=== PATIENT | male | born 1950 | race Caucasian/White ===

== ENCOUNTER → 2019-04-05 | Outpatient (CLI) | payer OTHER ==
[~2019-04-05] VITALS: Ht 175.3 cm; Wt 107.5 kg
[~2019-04-05] MED LIST: ACTOS15 MG PO; CRESTOR10 MG PO; METFORMIN HCL500 MG PO
[2019-04-05 08:59] VITALS: BP 168/89
== END ==
LOC: SPEC 07:00
DX: I71.4 Abdominal aortic aneurysm, without rupture (principal); I70.1 Atherosclerosis of renal artery; I10 Essential (primary) hypertension; E11.9 Type 2 diabetes mellitus without complications; E78.5 Hyperlipidemia, unspecified; E78.00 Pure hypercholesterolemia, unspecified; Z87.891 Personal history of nicotine dependence; Z79.899 Other long term (current) drug therapy; Z88.0 Allergy status to penicillin; Z98.890 Other specified postprocedural states

== ENCOUNTER 2019-04-19 07:45 | Inpatient (IN) | payer OTHER ==
[2019-04-16 13:08] LABS: URINE BILIRUBIN NEGATIVE (Negative); URINE BLOOD NEGATIVE (Negative); URINE CLARITY CLEAR; URINE COLOR YELLOW; URINE GLUCOSE-RANDOM* NEGATIVE (Negative); URINE KETONES NEGATIVE (Negative); URINE LEUKOCYTES NEGATIVE (Negative); URINE NITRITE NEGATIVE (Negative); URINE PROTEIN (DIPSTICK) NEGATIVE (Negative); URINE UROBILINOGEN 0.2 E.U./dl (0.2-1.0)
[2019-04-16 13:09] LABS: ABSOLUTE NEUTROPHILS 3.5 thou/uL (1.4-8.2); BASOPHILS 0.6 % (0.0-2.0); EOSINOPHILS 1.2 % (0.0-3.0); HEMATOCRIT 38.6 % (42.0-52.0); HEMOGLOBIN 13.4 gm/dL (14.0-18.0); LYMPHOCYTES 27.8 % (24.0-44.0); MCH 32.8 pg (26.0-34.0); MCHC 34.7 g/dL (28.0-37.0); MCV 94.5 fL (80.0-100.0); MONOCYTES 8.2 % (1.0-8.0); PLATELET COUNT 176 thou/uL (150-400); POLYS 62.2 % (36.0-66.0); RBC 4.09 mil/uL (4.50-6.00); RDW 14.3 % (10.5-14.5); WBC 5.7 thou/uL (4.0-11.0)
[2019-04-16 13:23] LABS: APTT 25.9 Seconds (24.5-32.8); PROTIME 10.5 Seconds (9.3-11.4)
[2019-04-16 13:27] LABS: ALBUMIN 4.3 g/dL (3.4-5.0); CALCIUM 9.7 mg/dL (8.5-10.1); CREATININE 1.1 mg/dL (0.7-1.3); POTASSIUM 4.2 mmol/L (3.5-5.1); TOTAL BILIRUBIN 1.4 mg/dL (<0.1-1.0); TOTAL PROTEIN 6.8 g/dL (6.4-8.2)
--- NOTE | 2019-04-16 16:03 | EKG ---
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 CASTANEDA : 1950 Requested By: Bk Martínez Order Number: [id number] MD: Ruiz Brewer Measurements Intervals [place] Rate: 100 P: 21 [place]: 183 QRS: -36 QRSD: 97 T: 48 QT: 359 QTc: 463 Interpretive Statements Sinus tachycardia Probable left atrial enlargement Left axis deviation No previous ECG available for comparison Electronically Signed On 04-16-2019 16:03:29 CDT by Ruiz Brewer [email or web address] ��������������������������������������������� <ELECTRONICALLY SIGNED> ���������������������������������������� By: Ruiz Brewer MD ��������������������������������������������� 04/16/19 1603 1250 1250 Ruiz Brewer MD /KENYON
[~2019-04-19] VITALS: Ht 175.3 cm; Wt 107.4 kg
--- NOTE | ~2019-04-19 | H ---
[facility] [place] [address] HISTORY AND PHYSICAL Name: LIVIA HICKEY Room #: 247-P [facility] IN M.R.#: [id number] Admission: 04/19/19 ������������������ Attend Phys: Bk Martínez MD Discharge: ������������������ Date of : 54 Report #: [id number] THIS REPORT FOR: //name// CC: Bk Navarrete DATE OF SERVICE: 04/20/2019 ADMISSION HISTORY AND PHYSICAL EXAMINATION CHIEF COMPLAINT: "I had chest pain right after the aortic aneurysm repair." HISTORY OF PRESENT ILLNESS: The patient is a very pleasant 69-year-old gentleman with a known history of recently diagnosed diabetes mellitus type 2 three months ago and has been on metformin and Actos, and informs me that his diabetes has been reasonably well controlled; however, he has a very strong family history of aortic aneurysm in his father as well as 2 brothers, and all of them have gotten the surgery done, so he made an appointment with the Cardiology to get the aortic aneurysm checked and today was scheduled for aortic aneurysm stenting and graft by Dr. Martínez. The patient tolerated the procedure fine. However, postoperatively in the recovery room, the patient started having left anterior chest pain, which was initially 4/10 and then it moved over to the midsternal area with 2/10 with some diaphoresis, but the patient denies any associated palpitations or dizziness or referred pain to the jaw, shoulder or arm. The patient did get nitroglycerin x 2 and it did help relieve the pain and the electrocardiogram stat was done along with the troponin, which indicated a first troponin at 0.19. However, the second troponin went to 29.67. At that time, the patient had cardiology evaluation and was taken to cardiac catheterization lab where the initial plan was to do a stent as needed. Instead, the patient was diagnosed with 3-vessel coronary artery disease and is going to see cardiothoracic surgeon again for CABG. The patient informs me that at home he has absolutely had no angina symptoms or any dyspnea or palpitations with exertion. He had been feeling fine and has had completely negative review of systems for dyspepsia, nausea, vomiting or epigastric discomfort or any other symptoms. The patient denies any recent fevers, shaking chills, night sweats or dysuria, hematuria, frequency or urgency of urination. Discussed with the patient about urinalysis done. Preoperative workup on 04/16/2019. The patient absolutely had no symptoms and the urinalysis was completely negative; however, the culture was sent by the preop team and it grew Strep viridans and apparently was treated with cephalosporin by the physician. The patient informs me he does not have any symptoms at all for frequency, urgency or nocturia or any dysuria. PAST MEDICAL HISTORY: Significant for: 1. Aortic aneurysm, diagnosed in 09/2018 and graft placed today. 2. Diabetes mellitus type 2, non-insulin dependent, diagnosed 3 months ago. 3. Hyperlipidemia. [address] [address] HISTORY AND PHYSICAL Name: LIVIA HICKEY Room #: 247-P [facility] IN M.R.#: [id number] Admission: 04/19/19 ������������������ Attend Phys: Bk Martínez MD Discharge: ������������������ Date of : 54 Report #: [id number] 4. Obesity with BMI 34.6. ALLERGIES: The patient has allergy to PENICILLIN; however, he informs me that it was diagnosed at the age of 7 years and he does not even recall the reaction. The patient has tolerated cephalosporins fine. CURRENT MEDICATIONS: As indicated above are: 1. Metformin. 2. Actos. 3. Crestor. PERSONAL AND SOCIAL HISTORY: Significant for tobacco use; however, he quit 35 years ago and had 1 pack per day from his teenage up until in his early 30s. The patient denies any alcohol intake or any recreational drug use. He lives at home with his and she is the emergency contact as well as durable power of corporate attorney for health in case he cannot speak for himself. Mrs. Phyllis Hcikey can be reached at [phone]. FAMILY HISTORY: Significant for father and 2 brothers with aortic aneurysm as indicated above. Also, father had some sort of spinal cancer that he is not sure about and that was the cause of his , and mother had some cancer as well, which he does not recall the diagnosis. The patient informs me that he has absolutely no history of coronary artery disease or CVA in the family or peripheral arterial disease. REVIEW OF SYSTEMS: Ten-point review of system was done. Please see above. PAST SURGICAL HISTORY: Completely negative except aortic stent and grafting done today. PHYSICAL EXAMINATION: VITAL SIGNS: When the patient presented to the hospital, temperature was 36.8, heart rate 95, respirations 16, blood pressure 143/60, pulse oximetry 96% on room air. However, at the time of the examination this morning, the patient is afebrile, heart rate 80, respirations 17, blood pressure 118/62 and pulse oximetry 98% on 4 liters of oxygen by nasal cannula. GENERAL: Alert and oriented to time, place and person, very pleasant 69-year-old gentleman who appears his stated age and is in no acute distress, lying down supine after the procedure. HEENT: Normocephalic, atraumatic. Pupils equally round, reactive to light. Extraocular muscle movements are intact. Conjunctivae are clear and his sclerae are nonicteric. Oropharynx is clear. Uvula midline. Mucous membranes moist. Angle of mouth symmetrical. Tympanic membrane not examined. NECK: Supple, no JVD, no lymphadenopathy. HEART: S1, S2 regular. The patient has 3/6 systolic ejection murmur, which has been present since he was 7 years of age; however, the patient does not remember [facility] [address] [place] [address] HISTORY AND PHYSICAL Name: LIVIA HICKEY Room #: 247-P ADM IN .R.#: [id number] Admission: 04/19/19 ������������������ Attend Phys: Bk Martínez MD Discharge: ������������������ Date of : 54 Report #: [id number] the valvular deformity that he has. No S3 or S4 noted. LUNGS: Clear to auscultation bilaterally without any crackles or wheezes and bilaterally symmetrical chest expansion present. ABDOMEN: Soft, nontender, nondistended. No hepatosplenomegaly noted. EXTREMITIES: Right groin with incision with the dressing intact and the pressure dressing noted, and both dorsalis pedis and posterior tibial are intact. NEUROLOGICAL: Examination is completely nonfocal. LABORATORY DATA: Labs and x-rays, the patient had point of contact glucose 158 this morning, however. Next, Hematology indicates WBC 8.9, hemoglobin 11.3, hematocrit 32.4 and platelet count 142. When reviewed his trend for platelet count, the patient has had 176 on 04/16/2019. Preop workup has a normal platelet count. Differential is within normal limits. Chemistries indicate sodium 137, potassium 3.9, chloride 104, bicarbonate 24, anion gap 9, BUN 20, creatinine 1.2. Calculated GFR is 60, calcium 7.9, albumin 3.1, total bilirubin 1.1, AST 99, ALT 30, alkaline phosphatase 41. Troponin as indicated above is 29.67 and BNP is normal at 302, total protein 5.6. The patient had a chest x-ray done, which indicates no cardiomegaly and pulmonary vasculature is within normal limits; however, there is some increased interstitial prominence as compared to the chest x-ray on 04/16/2019, which was completely unremarkable. Abdominal angiography was done and that indicates a technically satisfactory abdominal aortic aneurysm repair using Excluder stent graft. ASSESSMENT AND PLAN: 1. Non-ST elevation myocardial infarction and three-vessel coronary artery disease. The patient is seeing Dr. Martínez and will have her plan for coronary artery bypass grafting done. We will continue aspirin, statin and beta blockers as indicated by Dr. Singh. Dr. Singh is already on board and we will monitor the patient closely in ICU overnight. 2. Diabetes mellitus type 2. The patient has been on metformin and Actos at this time. We will hold metformin and Actos as he has gotten angiogram, and we will go ahead and get sliding scale insulin and if needed, Lantus. 3. Hyperlipidemia. Continue Crestor. 4. Aortic aneurysm, status post graft. Continue postoperative care as per vascular team. 5. Plan of care was discussed with the patient. The patient is full code. ��������������������������������������������� ���������������������������������������� By: ��������������������������������������������� 1354 1505 Cinthia Owens MD /nt
[2019-04-19 10:14] VITALS: BP 162/95
[2019-04-19 18:15] VITALS: BP 143/60
--- NOTE | 2019-04-19 19:43 | NUR ---
PT ARRIVED TO UNIT APPROXIMATELY 1814. BLOOD SUGAR CHECKED. PT ARRIVED ON NITRO GTT. PT SETTLED IN BED. BILAT GROIN SITES CHECKED, BOTH SOFT, NO HEMATOMAS PRESENT, L GROIN HAS VERY SCANT AMOUNT OF DRIED BLOODY DRAINAGE PRESENT. REPORT GIVEN TO UTILIZATION REVIEW NURSE NURSEYOANNA.
[2019-04-20] VITALS (24 sets, daily range): BP systolic 96–125; BP diastolic 52–68
[2019-04-20 06:26] LABS: HEMATOCRIT 32.4 % (42.0-52.0); HEMOGLOBIN 11.3 gm/dL (14.0-18.0); MCH 33.6 pg (26.0-34.0); MCHC 34.9 g/dL (28.0-37.0); MCV 96.1 fL (80.0-100.0); RBC 3.37 mil/uL (4.50-6.00); RDW 14.5 % (10.5-14.5); WBC 8.9 thou/uL (4.0-11.0)
[2019-04-20 06:49] LABS: ALBUMIN 3.1 g/dL (3.4-5.0); CALCIUM 7.9 mg/dL (8.5-10.1); CREATININE 1.2 mg/dL (0.7-1.3); POTASSIUM 3.9 mmol/L (3.5-5.1); TOTAL BILIRUBIN 1.1 mg/dL (<0.1-1.0); TOTAL PROTEIN 5.6 g/dL (6.4-8.2)
[2019-04-20 06:55] LABS: TROPONIN-I 29.67 ng/mL (<0.06)
--- NOTE | 2019-04-20 07:00 | NUR ---
Pt rested well through the night with no further c/o chest pain. PRN fentanyl and hydrocodones given for c/o generalized discomfort with desired effects achieved. NTG gtt titrated down and BP remains stable with HR unchanged. SpO2 adequate on current FiO2 and large amount of urine output for shift. Pt taking PO with no c/o nausea. Left and right groin sites stable. Am lab results noted, continue with POC.
--- NOTE | 2019-04-20 09:30 | NUR ---
Pt alert and oriented. Denies any chest discomfort. Pt kept NPO since start of the shift for heart cath today.
--- NOTE | 2019-04-20 11:14 | EKG ---
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: Abhinav LINDSAY : 1950 Requested By: Kiley Don Order Number: [id number] MD: Aldo Singh Measurements Intervals [place] Rate: 103 P: 14 [place]: 186 QRS: -33 QRSD: 102 T: 102 QT: 351 QTc: 460 Interpretive Statements Sinus tachycardia Probable left atrial enlargement Left axis deviation Abnormal R-wave progression, late transition Repol abnrm suggests ischemia, lateral leads ST elevation, consider inferior injury Compared to ECG 04/16/2019 12:50:08 Early repolarization now present Possible ischemia now present ST (T wave) deviation now present Myocardial infarct finding now present Electronically Signed On 04-20-2019 11:14:04 CDT by Aldo Singh [email or web address] ��������������������������������������������� <ELECTRONICALLY SIGNED> ���������������������������������������� By: Aldo Singh MD ��������������������������������������������� 04/20/19 1114 1533 1533 Aldo Singh MD /EPI
--- NOTE | 2019-04-20 11:14 | EKG ---
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 LINDSAY : 1950 Requested By: Kiley Don Order Number: [id number] MD: Aldo Singh Measurements Intervals [place] Rate: 102 P: 42 [place]: 160 QRS: -32 QRSD: 104 T: 105 QT: 335 QTc: 437 Interpretive Statements Sinus tachycardia Abnormal R-wave progression, late transition LVH with secondary repolarization abnormality Inferior ST segment abnormalities, consider ischemia Compared to ECG 04/16/2019 12:50:08 Left ventricular hypertrophy now present Early repolarization now present Left-axis deviation no longer present Electronically Signed On 04-20-2019 11:14:30 CDT by Aldo Singh [email or web address] ��������������������������������������������� <ELECTRONICALLY SIGNED> ���������������������������������������� By: Aldo Singh MD ��������������������������������������������� 04/20/19 1114 1618 1618 Aldo Singh MD /EPI
--- NOTE | 2019-04-20 12:45 | NUR ---
Pt returned to room from CV dept post heart cath. Pt given instruction on activity restrictions and groin precautions. Pt verbalized understanding. Left groin site is puffy/edematous but soft. Dressing to site is dry/intact with tiny amt of serosang drainage. Bedrest for 3 hours post hemostasis. NS started at 100 ml/hr via right forearm. Pt asking for food. Sinus rhythm. Heart murmur is present. Denies any chest discomfort.
--- NOTE | 2019-04-20 17:30 | NUR ---
Pt out of bed with assist to bedside chair per his request. Bilateral groin sites appear stable with no apparent active bleeding.
--- NOTE | 2019-04-20 19:00 | NUR ---
Remains up in chair. Pt had visit with family and now watching TV. No chest pain. Report given to SCARLET Reid assuming care. NS at TKO. O2 at 3 liters.
--- NOTE | 2019-04-20 22:51 | HC ---
[facility] [place] [address] CONSULTATION Name: LIVIA ANTONIO Room #: 247-P [facility] IN M.R.#: [id number] Admission: 04/19/19 ������������������ Attend Phys: Bk Martínez MD Discharge: ������������������ Date of : 54 Report #: [id number] THIS REPORT FOR: //name// CC: Bk Navarrete DATE OF SERVICE: 04/20/2019 CARDIOLOGY CONSULTATION INDICATION: Chest pain. HISTORY OF PRESENT ILLNESS: This is a 69-year-old gentleman with a history of abdominal aortic aneurysm, diabetes mellitus, hypercholesterolemia and edema who underwent an AAA stent graft repair yesterday. After the procedure, he developed chest discomfort. There were some ECG abnormalities. He was treated with nitro and beta paul therapy. The chest x-ray revealed possible pulmonary edema and he was given one dose of Lasix. Symptoms resolved. The second troponin is abnormal at 29.67. Since that initial episode, he has not had any further episodes of chest pain. He reports no previous episodes of chest discomfort. There is no history of dyspnea, lightheadedness, palpitations or orthopnea. PAST MEDICAL HISTORY: Abdominal aortic aneurysm, diabetes mellitus, edema, hypercholesterolemia. ALLERGIES: Include PENICILLIN. MEDICATIONS: At home include metformin, Actos daily and Crestor 10 mg daily. SOCIAL HISTORY: Denies tobacco use. FAMILY HISTORY: Negative for premature CAD. REVIEW OF SYSTEMS: A full 10-point review of systems performed. Only the pertinent positives and negatives are described in the HPI. PHYSICAL EXAMINATION: VITAL SIGNS: Blood pressure is 150/80, heart rate is 75 beats per minute. GENERAL APPEARANCE: This is a mildly overweight male in no acute distress. HEENT: Normocephalic, atraumatic. Oral mucosa moist. NECK: Supple. LUNGS: Clear to auscultation. CARDIAC: Regular rate and rhythm, 2/6 systolic murmur. ABDOMEN: Soft, nontender. EXTREMITIES: No cyanosis, positive edema. [facility] [address] [place] [address] CONSULTATION Name: LIVIA ANTONIO Room #: [facility] IN [facility]#: [id number] Admission: 04/19/19 ������������������ Attend Phys: Bk Martínez MD Discharge: ������������������ Date of : 54 Report #: [id number] NEUROLOGIC: Alert and oriented x 3. DIAGNOSTIC DATA: ECG reveals sinus rhythm, LVH, nonspecific T-wave abnormality. LABORATORY VALUES: Hemoglobin is 11.3. Creatinine is 1.2. Troponin peak is 29.67. ASSESSMENT AND PLAN: 1. Acute coronary syndrome/myocardial infarction, one episode of chest pain with no further recurrences. Presently on beta paul therapy and IV nitroglycerin. Given his presentation and symptoms, we will need to proceed with a cardiac catheterization. Full risks, benefits and alternatives of the case explained to the patient. He understands and wishes to proceed. 2. Hypertension, continue with beta-paul therapy. 3. Hypercholesterolemia, continue with statins. 4. AAA status post stent graft repair. Both groin sites appear stable. 5. Diabetes mellitus, continue with medications. ��������������������������������������������� <ELECTRONICALLY SIGNED> ���������������������������������������� By: Aldo Singh MD ��������������������������������������������� 04/20/19 2251 0843 2234 Aldo Singh MD /nt
[2019-04-21] VITALS (21 sets, daily range): BP systolic 103–143; BP diastolic 54–93
--- NOTE | 2019-04-21 04:39 | NUR ---
PT AOX4. ON 2L, DESATS DURING SLEEP. NO SIGNS OF RESP DISTRESS AT REST. VSS. MEDICATED FOR PAIN RELIEF. BILATERAL GROIN SITES DRESSING C/D/I; NO NOTED HEMATOMA OR BLEEDING. UP WITH STANDBY. TERRY CHRISTOPHER, PT USING THE URINAL. PT PROGRESSING TOWARDS GOALS. WILL CONTINUE TO MONITOR
[2019-04-21 04:52] LABS: CALCIUM 8.2 mg/dL (8.5-10.1); POTASSIUM 3.8 mmol/L (3.5-5.1)
[2019-04-21 05:10] LABS: HEMATOCRIT 30.3 % (42.0-52.0); HEMOGLOBIN 10.4 gm/dL (14.0-18.0); MCH 33.3 pg (26.0-34.0); MCHC 34.5 g/dL (28.0-37.0); MCV 96.6 fL (80.0-100.0); RBC 3.13 mil/uL (4.50-6.00); RDW 14.1 % (10.5-14.5); WBC 6.1 thou/uL (4.0-11.0)
--- NOTE | 2019-04-21 10:50 | EKG ---
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 : 1950 Requested By: Aldo Singh Order Number: [id number] MD: Aldo Singh Measurements Intervals [place] Rate: 81 P: 11 [place]: 174 QRS: -36 QRSD: 100 T: 27 QT: 401 QTc: 466 Interpretive Statements Sinus rhythm Abnormal R-wave progression, late transition Left ventricular hypertrophy Compared to ECG 04/19/2019 16:18:09 Sinus tachycardia no longer present Early repolarization no longer present Possible ischemia no longer present Electronically Signed On 04-21-2019 10:50:00 CDT by Aldo Singh [email or web address] ��������������������������������������������� <ELECTRONICALLY SIGNED> ���������������������������������������� By: Aldo Singh MD ��������������������������������������������� 04/21/19 1050 7 7 Aldo Singh MD /KENYON
--- NOTE | 2019-04-21 19:00 | NUR ---
Pt up in chair most of the shift. Many visitors today. Sinus rhythm. Pt has denied any chest discomfort this shift. Pre-op cardiac surgery teaching initiated. Pt is motivated to learn about surgery and how to have positive outcome. O2 at 2 liters. Fine bibasilar crackles. Good appetite. Adequate output. Groin sites are stable. Adequate pain control. Report given to oncoming RN.
[2019-04-22] VITALS: BP 118/65
[2019-04-22 04:00] VITALS: BP 107/64
--- NOTE | 2019-04-22 04:43 | NUR ---
PT AOX4. DENIES CHEST PAIN. VSS. LOW GRADE TEMP. MEDICATED FOR PAIN RELIEF. UP WITH MINIMAL ASSISTANCE. USES URINAL. NO COMPLAINS PRESENTLY. WILL CONTINUE TO MONITOR. PT PROGRESSING TOWARDS GOALS.
[2019-04-22 08:00] VITALS: BP 109/82
--- NOTE | 2019-04-22 10:20 | CATHLAB ---
[facility] [address] [place] [address] INVASIVE PROCEDURE REPORT Name: LIVIA ANTONIO Room #: 247-P ADM IN ..#: [id number] ������������� Admission: 04/19/19 ������������� Attend Phys: Bk Martínez MD Discharge: ��� ������������� ��� Date of : 54 Date of Service: 04/22/19 1020 �� Report #: [id number] �������� ��������������������������������������������[id number] THIS REPORT FOR: //name// APPROVED REPORT Study performed: 04/20/2019 10:58:14 Patient Details Patient Status: In-Patient Room #: The patient is a 69 year-old male Event Personnel Aldo Singh Casting Molder, Josette Owens RN, Francisca Holland RN RN, Titi Downey RT(R)(CV) Scrub, Cheri Alvarado RTR Scrub, Susan Ravi Monitor Procedures Performed Art Access - L femoral artery* Left Heart Cath w/LT VGram 0036404 LHCLV 29225 Initial Mod Sed Same Phys/QHP Gr5y 561031 49739 Mod Sed Same Phys/QHP Ea 498109 Hemostasis with Manual pressure Indication Non-STEMI , Chest pain Risk Factors Peripheral Vascular Disease, Hypercholesterolemia Previous Procedures/Diagnoses Previous Vascular Surgery Procedure Narrative The Left Groin^ was infiltrated with 1% Lidocaine subcutaneous anesthesia. A PINNACLE 4FR Sheath #[id number] sheath was inserted into the LFA^. Coronary angiography was performed using coronary diagnostic catheters. The right coronary system was accessed and visualized with a JR4 catheter. The left coronary system was accessed and visualized with a JL4 catheter. The left ventricle was accessed and visualized with a ANGLE PIG catheter. Left ventriculogram was performed in 30 degree projection. Hemostasis was obtained with manual pressure following sheath removal without any complications. The patient tolerated the procedure well and there were no complications associated with the procedure. There was no hematoma. [facility] [place] [address] INVASIVE PROCEDURE REPORT Name: LIVIA ANTONIO Room #: 247-P [facility] IN M.R.#: [id number] ������������� Admission: 04/19/19 ������������� Attend Phys: Bk Martínez MD Discharge: ��� ������������� ��� Date of : 54 Date of Service: 04/22/19 1020 �� Report #: [id number] �������� ��������������������������������������������[id number] Intraoperative Conscious Sedation Sedation start time: 1137 Case end Time: 1215 Fentanyl 50 mcg Versed 1 mg Fluoro Time: 6.18 minutes Dose: DAP 330404.50 cGycm2 1089 mGy Contrast Type and Amount: Omnipaque 75 ml Coronary Angiography The patient's coronary anatomy is right dominant. Diagnostic Cath Left Main This is a patent vessel, with no flow-limiting lesions. LAD There is mild diffuse disease in the proximal segment. Within the mid segment, there is a severe stenosis, 80%. Diagonal 1 This is a small-caliber vessel with a severe proximal stenosis. Diagonal 2 This is a moderate size caliber vessel with a severe ostial stenosis, 80%. Circumflex There is a severe occlusion in the proximal segment, 70%. It supplies a moderate size OM vessel. OM1 This is a moderate size caliber vessel with a severe proximal stenosis, 80%. Right Coronary This is a dominant vessel with a total occlusion in the mid segment. The distal branches are filled via collateral circulation from the left coronary artery. R PDA Filled from collateral circulation. RPLV Filled from collateral circulation. Left Ventriculography The left ventricle is normal in size with normal contractility. The left ventricular ejection fraction is estimated to be 60%. Aortic stenosis is noted. Hemodynamics The aortic pressure is 109/62 mmHg with a mean of 87 mmHg. The left ventricular pressure is 153/6 mmHg with a mean of mmHg. The left ventricular end diastolic pressure is 38 mmHg. Conclusion 1. Severe multivessel disease. 2. Normal LV systolic function. 3. Aortic stenosis, await echo. [facility] [address] [place] [address] INVASIVE PROCEDURE REPORT Name: LIVIA ANTONIO Room #: 247-P [facility] IN ..#: [id number] ������������� Admission: 04/19/19 ������������� Attend Phys: Bk Martínez MD Discharge: ��� ������������� ��� Date of : 54 Date of Service: 04/22/19 1020 �� Report #: [id number] �������� ��������������������������������������������[id number] 4. Recommend CABG. 5. Recommend aggressive risk factor management. ��������������������������������������������� <ELECTRONICALLY SIGNED> ���������������������������������������� By: Aldo Singh MD ��������������������������������������������� 04/22/19 1020 1020 1020 Aldo Singh MD /INF
--- NOTE | 2019-04-22 11:09 | 2DMMODE ---
[facility] [address] [place] [address] 2 D/M-MODE ECHOCARDIOGRAM Name: LIVIA ANTONIO Room #: 247-P [facility] IN ..#: [id number] ������������� Admission: 04/19/19 ������������� Attend Phys: Bk Martínez MD Discharge: ��� ������������� ��� Date of : 54 Date of Service: 04/22/19 1109 �� Report #: [id number] �������� ��������������������������������������������[id number] THIS REPORT FOR: //name// APPROVED REPORT Study performed: 04/22/2019 09:47:13 EXAM: Comprehensive 2D, Doppler, and color-flow Echocardiogram Patient Location: Bedside Room #: 247 BSA: 2.22 HR: 89 bpm BP: 107/64 mmHg Other Information Study Quality: Adequate Indications Aortic Valve Disease Diabetes Hx AAA repair 2D Dimensions RVDd: 38.56 mm IVSd: 17.13 (7-11mm) LVOT Diam: 19.95 (18-24mm) LVDd: 34.49 mm PWd: 16.64 (7-11mm) Ascending Ao: 33.11 (22-36mm) LVDs: 22.99 (25-40mm) Aortic Root: 32.50 mm IVC: 15.00 mm Volumes Left Atrial Volume (Systole) Single Plane 4CH: 55.59 mL Single Plane 2CH: 51.63 mL LA ESV Index: 26.00 mL/m2 Aortic Valve AoV Peak Miller.: 4.00 m/s AO Peak Gr.: 64.08 mmHg LVOT Max P.91 mmHg AO Mean Gr.: 36.58 mmHg LVOT Mean P.66 mmHg AO V2 Mean: 2.82 m/s LVOT Max V: 1.11 m/s AO V2 VTI: 79.77 cm LVOT Mean V: 0.72 m/s JAYLAN (VTI): 1.01 cm2 LVOT V1 VTI: 25.73 cm JAYLAN Vmax: 0.86 cm2 AI Vmax: 3.86 m/s SV (LVOT): 80.40 mL [facility] [place] [address] 2 D/M-MODE ECHOCARDIOGRAM Name: PACOLIVIA Anais Room #: 247-P [facility] IN M.R.#: [id number] ������������� Admission: 04/19/19 ������������� Attend Phys: Bk Martínez MD Discharge: ��� ������������� ��� Date of : 54 Date of Service: 04/22/19 1109 �� Report #: [id number] �������� ��������������������������������������������[id number] AI Kinney: 2.86 m/s2 AI PHT: 390.60 ms Mitral Valve E/A Ratio: 0.8 MV Decel. Time: 214.71 ms MV E Max Miller.: 1.10 m/s MV A Miller.: 1.42 m/s MV PHT: 62.27 ms IVRT: 58.82 ms Pulmonary Valve PV Peak Miller.: 1.02 m/s PV Peak Gr.: 4.14 mmHg Pulmonary Vein P Vein S: 0.56 m/s P Vein A: 0.26 m/s P Vein D: 0.48 m/s P Vein A Dur.: 83.0 msec P Vein S/D Ratio: 1.17 Tricuspid Valve RAP Estimate: 5.00 mmHg Left Ventricle The left ventricle is normal size. Moderate concentric left ventricular hypertrophy. The left ventricular systolic function is normal. The left ventricular ejection fraction is within the normal range. LVEF is 60%. Mild diastolic dysfunction is present (impaired relaxation pattern). Right Ventricle The right ventricle is normal size. The right ventricular systolic function is normal. Atria The left atrium size is normal. The right atrium size is normal. Aortic Valve Aortic valve is calcified. Mild to moderate aortic regurgitation. There is moderately severe valvular aortic stenosis. Calculated aortic valve area is 1.0 cm2 with maximum pressure gradient of 64 mmHg and mean pressure gradient of 37 mmHg. Mitral Valve Mild mitral annular calcification. Mild mitral regurgitation. No evidence of mitral valve stenosis. [address] [address] 2 D/M-MODE ECHOCARDIOGRAM Name: LIVIA ANTONIO Room #: 247-P [facility] IN .R.#: [id number] ������������� Admission: 04/19/19 ������������� Attend Phys: Bk Martínez MD Discharge: ��� ������������� ��� Date of : 54 Date of Service: 04/22/19 1109 �� Report #: [id number] �������� ��������������������������������������������[id number] Tricuspid Valve The tricuspid valve is normal in structure. Trace tricuspid regurgitation. Unable to assess PA pressure. Pulmonic Valve The pulmonary valve is normal in structure. Trace pulmonic regurgitation. Great Vessels The aortic root is normal in size. IVC is normal in size and collapses >50% with inspiration. Pericardium There is no pericardial effusion. <Conclusion> The left ventricle is normal size. Moderate concentric left ventricular hypertrophy. The left ventricular systolic function is normal. Mild diastolic dysfunction is present (impaired relaxation pattern). The right ventricle is normal size. The left atrium size is normal. Mild to moderate aortic regurgitation. There is moderately severe valvular aortic stenosis. Calculated aortic valve area is 1.0 cm2 with maximum pressure gradient of 64 mmHg and mean pressure gradient of 37 mmHg. Mild mitral regurgitation. Trace tricuspid regurgitation. ��������������������������������������������� <ELECTRONICALLY SIGNED> ���������������������������������������� By: Aldo Singh MD ��������������������������������������������� 04/22/19 1109 1109 1109 Aldo Singh MD /INF
[2019-04-22 12:00] VITALS: BP 118/66
--- NOTE | 2019-04-22 13:12 | NUR ---
PT TRANSFERRED TO ROOM 248 FROM 247. BATH DESIGN SALES CONSULTANT REAPPLIED, VSS. ALL BELONGINGS BROUGHT WITH PT. LISE CHAVES AT BEDSIDE, PRESCRIPTION WRITTEN FOR ANTIBIOTIC, WAITING ON CARDIOLOGY APPROVAL FOR DISCHARGE.
--- NOTE | 2019-04-22 13:18 | NUR ---
PT REFUSING FINGER STICK AND LUNCH BECAUSE HE WAS TOLD HE IS GOING TO BE DISCHARGED
[2019-04-22] MEDS ORDERED: LOPRESSOR50 PO (14:16)
[2019-04-22 15:49] VITALS: BP 118/66
[2019-04-22 15:56] VITALS: BP 118/66
[2019-04-22] MEDS ORDERED: AUGMENTIN 500-1 EACH PO (15:58)
--- NOTE | 2019-04-22 17:19 | NUR ---
PT WAS GIVEN DISCHARGE INSTRUCTIONS, EDUCATION MATERIALS, AAA CARD, FOLLOW UP AND RXS. ALL INSTRUCTIONS REVIEWED WITH PT AND SPOUSE. PT WHEELED OUT VIA WC ACCOMPANIED BY AND PROCESS CONTROL SPECIALIST.
--- NOTE | 2019-04-26 20:57 | O ---
[facility] [place] [address] OPERATIVE REPORT Name: LIVIA ANTONIO Room #: 248-P [facility] IN M.R.#: [id number] Admission: 04/19/19 ������������������ Attend Phys: Bk Martínez MD Discharge: 04/22/19 ������������������ Date of : 54 Report #: [id number] THIS REPORT FOR: //name// CC: Bk Navarrete DATE OF SERVICE: 04/19/2019 PREOPERATIVE DIAGNOSIS: Abdominal aortic aneurysm. POSTOPERATIVE DIAGNOSIS: Abdominal aortic aneurysm. OPERATION: Stent graft implant for abdominal aortic aneurysm. SURGEONS: kB Martínez MD and Richard Lundy MD ANESTHESIA: General. INDICATIONS: The patient is a 69-year-old with a large infrarenal abdominal aortic aneurysm, this is asymptomatic. The patient has a strong family history of aneurysm with rupture. FINDINGS AND TECHNIQUE: After general anesthesia was established, an incision was made in each groin to expose the common femoral artery. Heparin was given. On each side, the arterial needle was used to gain access and then a guidewire and 6-Israeli sheath was placed over the guidewire, a Berenstein catheter was used for exchange and Lisa wires were placed on each side. On the right side, a femoral cutdown was made and a 12-Israeli dilator and sheath were placed. On the left side, a 16-Israeli dilator and sheath were placed through a cutdown. Through the right side, the left renal artery, which was the lowest, was accessed using a visceral catheter and then a guidewire and then the guiding catheter and through the left side, the main body was placed. This was a 23 mm x 14 mm x 16 cm device and this was deployed at the lowest portion of the renal orifice. The renal catheter was withdrawn and the contralateral limb was accessed. Pigtail catheter was passed over the Lisa wire into the contralateral gate ultimately and pigtail spin technique ascertained good position and then a flush arteriogram was taken to demonstrate the right hypogastric artery and the measurement was taken from the contralateral gate to the hypogastric. Using this measurement, a 12 cm x 14 mm device was selected. This was passed through the right side 12-Israeli sheath and deployed at the contralateral gate. [facility] [address] [place] [address] OPERATIVE REPORT Name: PACOLIVIA Anais Room #: 248-P DIS IN M.R.#: [id number] Admission: 04/19/19 ������������������ Attend Phys: Bk Martínez MD Discharge: 04/22/19 ������������������ Date of : 54 Report #: [id number] A flush arteriogram was taken on the left and we finished deploying the main body. With all of the devices deployed, the compliant catheter MOB device was passed on both the right and left side sequentially to fully deploy and distend the stent graft in the contralateral gate and distally and at the neck just below the renal arteries. With the graft fully deployed, the pigtail catheter was replaced and a flush arteriogram was taken that showed good position of the graft with no evidence of endoleak. Satisfied with the position of the graft, the catheters and guidewires were removed and the femoral cut downs were closed with interrupted Prolene. Flow was reestablished and then protamine was given to reverse the heparin. When hemostasis was satisfactory, the wounds were closed in layers. The patient was taken to the recovery area in satisfactory condition. All counts reported as correct. ��������������������������������������������� <ELECTRONICALLY SIGNED> ���������������������������������������� By: Bk Martínez MD ��������������������������������������������� 04/26/19 2057 1300 1518 Bk Martínez MD /nt
== END 2019-04-22 17:21 | disposition home or self-care (01) | DRG 268 ==
LOC: PRE 07:45 → ICU 09:39 → TBA 09:39 → PRE 10:28 → ICU 18:49
PROVIDERS: Internal Medicine Cardiovascular Disease; ADMIT Surgery Vascular Surgery
DX: I71.4 Abdominal aortic aneurysm, without rupture (principal); I21.4 Non-ST elevation (NSTEMI) myocardial infarction; N39.0 Urinary tract infection, site not specified; E11.9 Type 2 diabetes mellitus without complications; I10 Essential (primary) hypertension; E78.00 Pure hypercholesterolemia, unspecified; B95.4 Other streptococcus as the cause of diseases classified elsewhere; D69.6 Thrombocytopenia, unspecified; I35.0 Nonrheumatic aortic (valve) stenosis; I25.10 Atherosclerotic heart disease of native coronary artery without angina pectoris; D64.9 Anemia, unspecified; E66.9 Obesity, unspecified; Z68.35 Body mass index [BMI] 35.0-35.9, adult; Z87.891 Personal history of nicotine dependence; Z79.84 Long term (current) use of oral hypoglycemic drugs; Z79.899 Other long term (current) drug therapy; Z88.0 Allergy status to penicillin; Z82.49 Family history of ischemic heart disease and other diseases of the circulatory system; Z80.8 Family history of malignant neoplasm of other organs or systems
CPT/HCPCS: 10078; 47375; 48888; 50010; 50101; 50386; 50455; 51078; 51751; 54118; 56524; 56526; 56531; 56668; 56760; 57093; 65040; 65090; 70005

== ENCOUNTER 2019-05-02 05:36 | Inpatient (IN) | payer OTHER ==
[~2019-05-02] VITALS: Ht 175.3 cm; Wt 106.1 kg
[~2019-05-02 05:36] MED LIST changes: +AUGMENTIN 500-1 EACH PO; +LOPRESSOR50 PO
[2019-05-02 06:39] VITALS: BP 138/77
[2019-05-02 07:28] LABS: HEMATOCRIT 30.4 % (42.0-52.0)
[2019-05-02 07:31] LABS: HEMOGLOBIN 10.6 gm/dL (14.0-18.0)
[2019-05-02 14:53] LABS: HEMATOCRIT 20.2 % (42.0-52.0); MCHC 34.3 g/dL (28.0-37.0); MCV 96.2 fL (80.0-100.0); RBC 2.1 mil/uL (4.50-6.00); RDW 14.1 % (10.5-14.5)
[2019-05-02 14:56] LABS: HEMOGLOBIN 6.9 gm/dL (14.0-18.0)
[2019-05-02 15:05] LABS: APTT 25.5 Seconds (24.5-32.8); INR 1.4
[2019-05-02 15:08] LABS: PROTIME 14.3 Seconds (9.3-11.4)
[2019-05-02 15:20] LABS: POC BE 1 mmol/L (-2.0 to +3.0); POC CA IONIZED 4.4 mg/dL (4.5-5.3); POC GLUCOSE 120 mg/dL (70-99); POC HCO3 25.8 mmol/L (22.0-26.0); POC HEMOGLOBIN 7.8 g/dL (14.0-18.0); POC POTASSIUM 4.5 mmol/L (3.5-5.1); POC SODIUM 142 mmol/L (136-145); POC pH 7.386 (7.360-7.450)
[2019-05-02 15:20] LABS: POC BE -1 mmol/L (-2.0 to +3.0); POC CA IONIZED 5.1 mg/dL (4.5-5.3); POC GLUCOSE 105 mg/dL (70-99); POC HCO3 24.3 mmol/L (22.0-26.0); POC HEMOGLOBIN 6.8 g/dL (14.0-18.0); POC POTASSIUM 4.1 mmol/L (3.5-5.1); POC SODIUM 143 mmol/L (136-145); POC pCO2 42.3 mmHg (35.0-45.0); POC pH 7.367 (7.360-7.450)
[2019-05-02 15:20] LABS: POC BE 1 mmol/L (-2.0 to +3.0); POC CA IONIZED 4.4 mg/dL (4.5-5.3); POC GLUCOSE 134 mg/dL (70-99); POC HCO3 26.8 mmol/L (22.0-26.0); POC HEMOGLOBIN 8.2 g/dL (14.0-18.0); POC POTASSIUM 4.1 mmol/L (3.5-5.1); POC SODIUM 143 mmol/L (136-145); POC pCO2 48.7 mmHg (35.0-45.0); POC pH 7.348 (7.360-7.450)
[2019-05-02 15:20] LABS: POC BE 1 mmol/L (-2.0 to +3.0); POC CA IONIZED 4.5 mg/dL (4.5-5.3); POC GLUCOSE 128 mg/dL (70-99); POC HCO3 25.6 mmol/L (22.0-26.0); POC HEMOGLOBIN 7.1 g/dL (14.0-18.0); POC POTASSIUM 3.4 mmol/L (3.5-5.1); POC SODIUM 141 mmol/L (136-145); POC pCO2 43.1 mmHg (35.0-45.0); POC pH 7.382 (7.360-7.450)
[2019-05-02 15:25] LABS: POC BE -2 mmol/L (-2.0 to +3.0); POC CA IONIZED 4.7 mg/dL (4.5-5.3); POC GLUCOSE 139 mg/dL (70-99); POC HCO3 23.5 mmol/L (22.0-26.0); POC HEMOGLOBIN 8.2 g/dL (14.0-18.0); POC POTASSIUM 4.1 mmol/L (3.5-5.1); POC SODIUM 144 mmol/L (136-145); POC pCO2 45.1 mmHg (35.0-45.0); POC pH 7.325 (7.360-7.450)
[2019-05-02 15:25] LABS: POC BE 0 mmol/L (-2.0 to +3.0); POC CA IONIZED 4.5 mg/dL (4.5-5.3); POC GLUCOSE 144 mg/dL (70-99); POC HCO3 25.3 mmol/L (22.0-26.0); POC HEMOGLOBIN 8.2 g/dL (14.0-18.0); POC POTASSIUM 3.7 mmol/L (3.5-5.1); POC SODIUM 141 mmol/L (136-145); POC pCO2 43.5 mmHg (35.0-45.0); POC pH 7.372 (7.360-7.450)
[2019-05-02 15:25] LABS: POC BE 0 mmol/L (-2.0 to +3.0); POC CA IONIZED 4.7 mg/dL (4.5-5.3); POC GLUCOSE 152 mg/dL (70-99); POC HCO3 24.6 mmol/L (22.0-26.0); POC HEMOGLOBIN 8.5 g/dL (14.0-18.0); POC POTASSIUM 3.5 mmol/L (3.5-5.1); POC SODIUM 140 mmol/L (136-145); POC pH 7.419 (7.360-7.450)
[2019-05-02 15:25] LABS: POC BE 1 mmol/L (-2.0 to +3.0); POC CA IONIZED 4.5 mg/dL (4.5-5.3); POC GLUCOSE 158 mg/dL (70-99); POC HCO3 25.8 mmol/L (22.0-26.0); POC HEMOGLOBIN 8.8 g/dL (14.0-18.0); POC POTASSIUM 3.5 mmol/L (3.5-5.1); POC SODIUM 141 mmol/L (136-145); POC pCO2 43.7 mmHg (35.0-45.0); POC pH 7.379 (7.360-7.450)
[2019-05-02 15:25] LABS: POC BE -2 mmol/L (-2.0 to +3.0); POC CA IONIZED 4.5 mg/dL (4.5-5.3); POC GLUCOSE 125 mg/dL (70-99); POC HCO3 24.2 mmol/L (22.0-26.0); POC HEMOGLOBIN 7.5 g/dL (14.0-18.0); POC POTASSIUM 3.6 mmol/L (3.5-5.1); POC SODIUM 139 mmol/L (136-145); POC pCO2 45.7 mmHg (35.0-45.0); POC pH 7.331 (7.360-7.450)
[2019-05-02 15:25] LABS: POC BE -1 mmol/L (-2.0 to +3.0); POC CA IONIZED 4.4 mg/dL (4.5-5.3); POC GLUCOSE 149 mg/dL (70-99); POC HCO3 24.6 mmol/L (22.0-26.0); POC HEMOGLOBIN 7.8 g/dL (14.0-18.0); POC POTASSIUM 3.5 mmol/L (3.5-5.1); POC SODIUM 140 mmol/L (136-145); POC pCO2 43.2 mmHg (35.0-45.0); POC pH 7.362 (7.360-7.450)
[2019-05-02 15:25] LABS: POC BE -1 mmol/L (-2.0 to +3.0); POC CA IONIZED 4.9 mg/dL (4.5-5.3); POC GLUCOSE 87 mg/dL (70-99); POC HEMOGLOBIN 8.2 g/dL (14.0-18.0); POC POTASSIUM 3.9 mmol/L (3.5-5.1); POC SODIUM 145 mmol/L (136-145); POC pCO2 41.5 mmHg (35.0-45.0); POC pH 7.371 (7.360-7.450)
[2019-05-02 15:25] LABS: POC BE 3 mmol/L (-2.0 to +3.0); POC CA IONIZED 4.7 mg/dL (4.5-5.3); POC GLUCOSE 188 mg/dL (70-99); POC HCO3 26.7 mmol/L (22.0-26.0); POC HEMOGLOBIN 8.5 g/dL (14.0-18.0); POC POTASSIUM 3.8 mmol/L (3.5-5.1); POC SODIUM 139 mmol/L (136-145); POC pCO2 39.6 mmHg (35.0-45.0); POC pH 7.438 (7.360-7.450)
[2019-05-02 15:52] VITALS: BP 114/56
[2019-05-02 16:00] VITALS: BP 119/61
[2019-05-02 16:05] LABS: BE(vivo) -4.5 mmol/L (-2 to +3); HCO3 20.2 mmol/L (22.0-26.0); PCO2 35.6 mmHg (35.0-45.0); PO2 74.6 mmHg (80.0-100.0); pH 7.372 (7.360-7.450); sO2 94.8 % (92.0-98.0)
[2019-05-02 16:10] LABS: HEMATOCRIT 26.1 % (42.0-52.0); MCH 32.9 pg (26.0-34.0); MCHC 34.1 g/dL (28.0-37.0); MCV 96.6 fL (80.0-100.0); RBC 2.71 mil/uL (4.50-6.00); RDW 14.4 % (10.5-14.5); WBC 18.1 thou/uL (4.0-11.0)
[2019-05-02 16:11] LABS: HEMOGLOBIN 8.9 gm/dL (14.0-18.0)
[2019-05-02 16:11] LABS: PCO2 VENOUS 42.7 mmHg (41.0-51.0); PO2 VENOUS 34.4 mmHg (35.0-45.0)
[2019-05-02 16:19] LABS: CALCIUM 8.3 mg/dL (8.5-10.1); CREATININE 1.2 mg/dL (0.7-1.3); MAGNESIUM 2.3 mg/dL (1.8-2.4); POTASSIUM 4.3 mmol/L (3.5-5.1)
[2019-05-02 16:29] LABS: APTT 27.2 Seconds (24.5-32.8); FIBRINOGEN 257.2 mg/dL (210-360); INR 1.3; PROTIME 13.1 Seconds (9.3-11.4)
--- NOTE | 2019-05-02 16:43 | EKG ---
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: Abhinav LINDSAY : 1950 Requested By: Olaf Perez Order Number: [id number] MD: Ruiz Brewer Measurements Intervals Bruce Rate: 101 P: 46 IN: 152 QRS: -37 QRSD: 131 T: 64 QT: 393 QTc: 510 Interpretive Statements Sinus tachycardia Nonspecific IVCD with LAD Nonspecific T abnormalities, lateral leads Compared to ECG 04/20/2019 06:38:27 Intraventricular conduction delay now present T-wave abnormality now present Sinus rhythm no longer present Left ventricular hypertrophy no longer present Electronically Signed On 05-02-2019 16:43:20 CDT by Ruiz Brewer [email or web address] <ELECTRONICALLY SIGNED> By: Ruiz Brewer MD 05/02/19 1643 1558 1558 Ruiz Brewer MD /EPI
[2019-05-02 17:54] LABS: BE(vivo) -8.1 mmol/L (-2 to +3); HCO3 16.6 mmol/L (22.0-26.0); PCO2 31.1 mmHg (35.0-45.0); PO2 126.9 mmHg (80.0-100.0); pH 7.346 (7.360-7.450); sO2 98.4 % (92.0-98.0)
--- NOTE | 2019-05-02 19:07 | NUR ---
ASSUMED CARE @ 1545, PT ARRIVED ON THE UNIT FROM THE 0R WITH THE ASSIST OF NURSING STAFF, ANESTHESIOLOGIST, AND SURGEON. PT ARRIVED WITH PROPOFOL GTT RUNNING, NOW OFF. PT EXTUBATED @ 1830, PT PLACED ON 6L, NO SOA OF NOTED, PT ABLE TO TOLERATE WELL. CRITICALS CALLED TO DR SINGLETON. PLAN OF CARE- CONT TO MONITOR.
[2019-05-02 20:00] VITALS: BP 125/60
[2019-05-02 20:07] LABS: BE(vivo) -9.7 mmol/L (-2 to +3); HCO3 14.8 mmol/L (22.0-26.0); PCO2 27.4 mmHg (35.0-45.0); PO2 107.8 mmHg (80.0-100.0); pH 7.349 (7.360-7.450); sO2 97.8 % (92.0-98.0)
[2019-05-02 23:06] LABS: GLYCOHEMOGLOBIN (HGB A1C) 6.7 % (4.8-5.6)
[2019-05-03] VITALS (7 sets, daily range): BP systolic 108–145; BP diastolic 39–81
[2019-05-03 06:13] LABS: HEMATOCRIT 21.4 % (42.0-52.0); HEMOGLOBIN 7.4 gm/dL (14.0-18.0); MCH 33.3 pg (26.0-34.0); MCHC 34.6 g/dL (28.0-37.0); MCV 96.3 fL (80.0-100.0); RBC 2.23 mil/uL (4.50-6.00); RDW 14.1 % (10.5-14.5); WBC 9.1 thou/uL (4.0-11.0)
[2019-05-03 06:48] LABS: CREATININE 1.3 mg/dL (0.7-1.3); MAGNESIUM 2.2 mg/dL (1.8-2.4); POTASSIUM 4.2 mmol/L (3.5-5.1)
--- NOTE | 2019-05-03 07:00 | NUR ---
UP TO CARDIAC CHAIR. DELFIN WELL. REMAINS AWAKE AND ALERT. VSS CHEST DRESSING AND LEG DSG DRY AND INTACT. 750 CC UO THIS SHIFT AND TOTAL OF 650 CC CHEST DRAINAGE. DELFIN ICE CHIPS And water. fentanyl for pain. remains in sinus tach. pt is in good spiritis! will cont to monitor closely.
--- NOTE | 2019-05-03 07:59 | NUR ---
Received consult for diet instruction. Pt s/p CABG x 3, AVR on 05/02. NPO and still in ICU. Will assess nutrition education needs once transferred out of ICU. Has hx CAD, and DM. A1C 6.7.
--- NOTE | 2019-05-03 15:27 | NUR ---
CM ASSESSMENT: CASE OPENED FOR DC PLANNING. CLINICAL INFO REVIEWED. PT ADMITTED FOR CABG/AVR AND IS POD #1, ABOUT READY TO GET CHEST TUBES REMOVED. 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 HAS CANE AT HOME IF NEEDED. 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 WORKING WITH THERAPY AND APPEARS LIKELY WILL HAVE NO CM NEEDS AT DISCHARGE. CM AVAILABLE PRN TO ASSIST WITH COORDINATION OF ANY DC NEEDS.
--- NOTE | 2019-05-03 19:20 | NUR ---
ASSUMED CARE @ 0700 05/03/19, PT ASSESSMENTS AND VSS COMPLETE PER ICU PROTOCOL. ORDERS EXECUTED WRITTEN. PT UP TO THE CHAIR X 2 TODAY. PLAN OF CARE- CONT TO MONITOR.
[2019-05-04] VITALS (9 sets, daily range): BP systolic 110–145; BP diastolic 53–84
[2019-05-04 05:22] LABS: MCH 33.6 pg (26.0-34.0); MCV 96.1 fL (80.0-100.0); RBC 1.92 mil/uL (4.50-6.00); RDW 14.5 % (10.5-14.5); WBC 8.2 thou/uL (4.0-11.0)
[2019-05-04 05:25] LABS: HEMATOCRIT 18.4 % (42.0-52.0); HEMOGLOBIN 6.4 gm/dL (14.0-18.0)
[2019-05-04 05:27] LABS: CALCIUM 7.9 mg/dL (8.5-10.1); CREATININE 1.2 mg/dL (0.7-1.3); POTASSIUM 4.2 mmol/L (3.5-5.1)
[2019-05-04 05:35] LABS: INR 1.2; PROTIME 12.2 Seconds (9.3-11.4)
--- NOTE | 2019-05-04 11:43 | EKG ---
[place] [address] [facility] [employer] [place] [address] ELECTROCARDIOGRAM REPORT Name: LIVIA ANTONIO Room #: 241-P ADM IN M.R.#: [id number] Admission: 05/02/19 Attend Phys: Bk Martínez MD Discharge: Date of : 54 Report #: [id number] THIS REPORT FOR: //name// [facility] Test Date: 2019-05-03 Test Time: 08:14:23 Pat Name: LIVIA ANTONIO Department: Room: 241 P Gender: M Pc Network Technician: YAMILKA : 1950 Requested By: Olaf Perez Order Number: [id number] MD: Antione Morris Measurements Intervals Jemison Rate: 101 P: 6 ND: 118 QRS: -25 QRSD: 118 T: -2 QT: 406 QTc: 527 Interpretive Statements Sinus tachycardia Early R-wave progression Nonspecific ST and T wave abnormality Prolonged QT interval Compared to ECG 05/02/2019 15:58:24 Nonspecific change in the ST and T-wave segments Electronically Signed On 05-04-2019 11:43:42 CDT by Antione Morris [email or web address] <ELECTRONICALLY SIGNED> By: Antione Morris MD, [facility] 05/04/19 1143 0814 0814 Antione Morris MD, [facility] /EPI
--- NOTE | 2019-05-04 16:22 | NUR ---
PT TRANSFERED FROM ICU. ALERT AND ORIENTED. VSS. DENIED HAVING PAIN OR DISCOMFORT. STERNUM DALTON DRESSING INTACT WITH WOUND VAC. CHEST TUBE PATENT. AT THE BEDSIDE. NO CARDIAC OR RESPIRATORY DISTRESS NOTED. WILL CONTINUE TO MONITOR.
[2019-05-05 04:45] VITALS: BP 113/66
[2019-05-05 05:11] LABS: HEMATOCRIT 23.1 % (42.0-52.0); MCH 32.8 pg (26.0-34.0); MCHC 34.5 g/dL (28.0-37.0); MCV 95.2 fL (80.0-100.0); RBC 2.43 mil/uL (4.50-6.00); RDW 15.3 % (10.5-14.5); WBC 8.2 thou/uL (4.0-11.0)
[2019-05-05 05:25] LABS: MAGNESIUM 2.3 mg/dL (1.8-2.4); POTASSIUM 3.9 mmol/L (3.5-5.1)
[2019-05-05 05:36] LABS: GLYCOHEMOGLOBIN (HGB A1C) 6.5 % (4.8-5.6)
--- NOTE | 2019-05-05 07:24 | NUR ---
ASSESSMENTS CHARTED. MEDS GIVEN CHARTED. RESTING IN BED DURING SHIFT. UP TO TOLIET URINATED ONCE POST STEWART REMOVAL, WAS NOT MEASURED. VSS. FALL PRECAUTIONS IN PLACE. DENIED PAIN DURING SHIFT. PLAN IS TO CONTINUE PHYSICAL THERAPY CONDITIONING.
[2019-05-05 07:52] VITALS: BP 114/59
--- NOTE | 2019-05-05 09:32 | O ---
[facility] [place] [place] [address] OPERATIVE REPORT Name: LIVIA ANTONIO Room #: 206-P [facility] IN M.R.#: [id number] Admission: 05/02/19 Attend Phys: Bk Martínez MD Discharge: Date of : 54 Report #: [id number] THIS REPORT FOR: //name// CC: Bk Navarrete DATE OF SERVICE: 05/02/2019 PREOPERATIVE DIAGNOSES: Coronary artery disease and aortic valve stenosis. POSTOPERATIVE DIAGNOSES: Coronary artery disease and aortic valve stenosis. OPERATIONS: Coronary artery bypass x 5 including left internal mammary artery to left anterior descending artery, saphenous vein to diagonal and marginal and saphenous vein to posterior descending and posterolateral branches of the right coronary and aortic valve replacement with a 23 mm Rafael-Whalen bioprosthesis and endoscopic harvest, left greater saphenous vein. SURGEON: Bk Martínez MD PROCUREMENT PROFESSIONAL: VERNELL Mitchell ANESTHESIA: General. INDICATIONS: The patient is a 69-year-old known to me from his stent graft implant approximately 2 weeks ago. The patient had an infarct in the recovery room after that and catheterization demonstrated severe 3-vessel coronary disease. The patient has now aortic valve stenosis, but it was better characterized with the catheterization and echo. FINDINGS AND TECHNIQUE: After general anesthesia was established, saphenous vein was harvested using an endoscopic approach and prepared for use as a conduit. Exposure was obtained through median sternotomy. Left internal mammary artery was harvested. Pericardial well was made. Cannulation sutures were placed. Heparin was given. Aorta was cannulated. Right atrium was cannulated. Cardioplegia needle was positioned in the aortic root. Retrograde cardioplegic catheter was placed in coronary sinus. Cardiopulmonary bypass was established. Aorta was cross clamped. Antegrade and retrograde cardioplegia were given. Ice was poured into the pericardial well. The heart was stopped. During electromechanical arrest, the distal anastomoses were performed and end-to-side anastomosis was made between vein and the posterolateral branch of the right coronary. This was a 1.6 mm vessel. Cold cardioplegia was given. The same segment of vein was sewn in end-to-side fashion to the posterior [facility] [address] [address] OPERATIVE REPORT Name: LIVIA ANTONIO Room #: 206-P [facility] IN M.R.#: [id number] Admission: 05/02/19 Attend Phys: Bk Martínez MD Discharge: Date of : 54 Report #: [id number] descending artery. This was a 1.3 mm vessel. Cold cardioplegia was given. Separate segment of vein was sewn in end-to-side fashion to the large marginal artery. This was a 1.6 mm vessel. Cold cardioplegia was given. The same segment of vein was sewn in end-to-side fashion to the diagonal artery. This was a 1.5 mm vessel. Cold cardioplegia was given. Left internal mammary artery was sewn in end-to-side fashion to left anterior descending artery. This was a 1.6 mm vessel. Patency of this vessel was checked with the temperature technique. Cold cardioplegia was given. At this point, the aortic valve was replaced and aortotomy was made approximately 15 mm above the right coronary. The valve was tricuspid. It was highly calcified. Valve leaflets were excised and the annulus was decalcified. Cardioplegia was given every 15 minutes during the valve replacement via the retrograde catheter and the vein grafts. After the annulus was decalcified, the cavity of the ventricle was irrigated to remove any loose debris. Interrupted Ethibond sutures were placed sequentially through the hoh annulus and then through the sewing ring of a 23 mm prosthesis chosen for both patient and annulus size. The prosthesis was lowered into position and the sutures were tied with the Cor-Knot device. The valve appeared to sit nicely. The aortotomy was closed using Carrel technique. Cold cardioplegia was given. Two proximal anastomoses were performed. When these were complete, warm retrograde cardioplegia was given followed by warm continuous blood to the coronary sinus. When this infusion was complete, the crossclamp was removed. De-airing maneuvers were performed. The anastomoses were inspected and found to be satisfactory. As the patient warmed, nice cardiac activity resumed, chest tubes and pacing wires were placed, a marker was placed around the proximal anastomoses. At this point, the patient was weaned from cardiopulmonary bypass. Because of discrepancies between what we perceived at the operating field and the arterial blood pressure, a femoral line was placed using Seldinger technique. This gave a more accurate blood pressure reading. The patient was weaned from cardiopulmonary bypass. Venous cannula was removed. Protamine was given, the aortic cannula was removed. Flows were measured in the bypass grafts. When hemostasis was satisfactory, chest was irrigated with antibiotic solution and closed in the usual fashion. The patient was taken to the Intensive Care [facility] [address] [place] [address] OPERATIVE REPORT Name: LIVIA ANTONIO Room #: 206-P [facility] IN M.R.#: [id number] Admission: 05/02/19 Attend Phys: Bk Martínez MD Discharge: Date of : 54 Report #: [id number] Unit in good condition having tolerated the procedure well. All counts reported as correct. <ELECTRONICALLY SIGNED> By: Bk Martínez MD 05/05/19 0932 1659 1724 Bk Martínez MD /nt
[2019-05-05 11:42] VITALS: BP 92/49
[2019-05-05 15:33] VITALS: BP 107/57
--- NOTE | 2019-05-05 17:28 | NUR ---
ASSESSMENT CHARTED. PT ALERT AND ORIENTED. VSS. AMBULATED X3 THIS SHIFT. UP IN THE CHAIR. STERNAL DALTON DRESSING C/D/I WITH WOUNDVAC IN PLACE. AT THE BEDSIDE. STERNUM PRECAUTION ENFORCED. WILL CONTINUE TO MONITOR.
[2019-05-05 19:36] VITALS: BP 121/56
[2019-05-06 04:52] VITALS: BP 125/53
[2019-05-06 05:45] LABS: HEMATOCRIT 23.1 % (42.0-52.0); MCH 33.2 pg (26.0-34.0); MCHC 34.5 g/dL (28.0-37.0); RBC 2.4 mil/uL (4.50-6.00); RDW 15.2 % (10.5-14.5); WBC 6.6 thou/uL (4.0-11.0)
[2019-05-06 05:56] LABS: CALCIUM 7.8 mg/dL (8.5-10.1); CREATININE 1.1 mg/dL (0.7-1.3); POTASSIUM 3.5 mmol/L (3.5-5.1)
--- NOTE | 2019-05-06 07:58 | NUR ---
ASSESSMENTS CHARTED, MEDS CHARTED. C/O HICCUPS ALL DAY. RECEIVED ORDER FROM Fran LOPEZ FOR THORAZINE. RESTED DURING SHIFT. PLAN OF CARE IS TO POSSIBLY GO HOME TODAY AFTER CHEST XRAY. FALL PRECAUTIONS IN PLACE. DENIED PAIN DURING SHIFT.
[2019-05-06 08:00] VITALS: BP 116/63
--- NOTE | 2019-05-06 08:47 | EKG ---
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1950 Requested By: Bk Martínez Order Number: [id number] MD: Antione Morris Measurements Intervals [place] Rate: 95 P: 15 UT: 131 QRS: -26 QRSD: 104 T: 82 QT: 397 QTc: 499 Interpretive Statements Sinus rhythm Abnormal R-wave progression, early transition Nonspecific ST and T wave abnormality Borderline prolonged QT interval Compared to ECG 05/03/2019 08:14:23 no significant change was found Electronically Signed On 05-06-2019 8:47:08 CDT by Antione Morris [email or web address] <ELECTRONICALLY SIGNED> By: Antione Morris MD, [facility] 05/06/19 0847 1 1 Antione Morris MD, [facility] /EPI
[2019-05-06 12:00] VITALS: BP 99/61
--- NOTE | 2019-05-06 13:07 | PATH ---
[facility] [address] [place] [address] PATHOLOGY RPT PROCEDURE Name: LIVIA HICKEY Anais Room #: 206-P ADM IN M.R.#: [id number] Admission: 05/02/19 Date of : 54 Discharge: Report #: [id number] Path Case #: [id number] [facility] Accession Number: [id number] . 01 Material submitted: . aortic body - AORTIC VALVE . 01 Clinical history: . Preop DX: Coronary artery disease, AAA, status post aortic stent graft Postop DX: Coronary artery disease . 02 Diagnosis: Aortic valve, replacement: - Marked calcific sclerosis along with arterial wall showing marked myxoid degenerative changes. 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 02 Electronically signed: . Marisela Mathew MD, Pathologist NPI- [id number] . 01 Gross description: . Received in formalin labeled "Livia Hickey, aortic valve," are five segments of pale villalpando, rubbery tissue admixed with granular, pastel yellow and grossly calcified soft tissue measuring 5.0 x 2.4 x 0.6 cm in aggregate dimensions. Serial sectioning reveals soft, pale villalpando to granular, pastel yellow and grossly calcified cut surfaces. All five segments are submitted representatively in cassette A1, following decalcification. ([facility]; 05/03/2019) XDC/XDC 05/03/2019 [facility] Local . 02 Pathologist provided ICD-10: I35.8 . 02 CPT . 276526, [id number] Specimen Comment: A courtesy copy of this report has been sent to Specimen Comment: [phone], . Specimen Comment: Report sent to / DR CARROLL Performed at: [address] [id number] MD Jovani Reno MD Phone: [phone] Performed at: [address] [address] PATHOLOGY RPT PROCEDURE Name: LIVIA HICKEY Room #: 206-P ADM IN M.R.#: [id number] Admission: 05/02/19 Date of : 54 Discharge: Report #: [id number] Path Case #: [id number] [address] [place] [id number] MD Marisela Mathew MD Phone: [phone]
[2019-05-06 16:00] VITALS: BP 112/66
--- NOTE | 2019-05-06 16:22 | NUR ---
ASSUMED PT CARE AT APPROXIMATELY O700. PT A&O X4. ASSESSMENT CHARTED. FALL PRECAUTIONS IN PLACE. PT DENIES CHEST PAIN. PT DENIES SOB. PT DENIES HAVING ACUTE PAIN. ALL DRESSINGS C/D/I. PT AMBULATES STEADY/INDEPENDENT. PT UP TO CHAIR THROUGHOUT SHIFT. ENCOURAGED USE OF IS. PT COMFORTABLE IN BED-PT DENIES HAVING CONCERNS AT THIS TIME.
[2019-05-06 20:23] VITALS: BP 16/60
[2019-05-07 00:31] VITALS: BP 93/59
[2019-05-07 05:02] VITALS: BP 111/62
--- NOTE | 2019-05-07 05:19 | NUR ---
ASSUMED PT CARE AT 1900. PT HAS BEEN SLEEPING OFF AND ON THROUGHOUT SHIFT. WILL AWAKEN WHEN SPOKEN TO. PT VSS. INCISION SITES ARE C/D/I. PT SITS UP IN CHAIR AND C/O ZERO PAIN. WILL CONTINUE TO MONITOR PT ACCORDING TO POC.
[2019-05-07 05:26] LABS: HEMATOCRIT 24.5 % (42.0-52.0); HEMOGLOBIN 8.4 gm/dL (14.0-18.0); MCHC 34.1 g/dL (28.0-37.0); MCV 96.7 fL (80.0-100.0); RBC 2.53 mil/uL (4.50-6.00); RDW 15.6 % (10.5-14.5); WBC 6.8 thou/uL (4.0-11.0)
[2019-05-07 08:00] VITALS: BP 112/63
[2019-05-07 12:00] VITALS: BP 106/52
[2019-05-07 16:00] VITALS: BP 102/53
--- NOTE | 2019-05-07 16:54 | NUR ---
ASSUMED PT CARE AT APPROXIMATELY 0700. A&O X4. FALL PRECAUTIONS IN PLACE. ASSESSMENT CHARTED. VITAL SIGNS STABLE. BLOOD SUGARS STABLE. PT DENIES HAVING CHEST PAIN. PT DENIES HAVING SOB. PT DENIES HAVING ACUTE PAIN. PT AMBULATES WITH STANDBY ASSIST. PT AND PT'S SPOUSE EDUCATED ABOUT STERNAL PRECAUTIONS AND POC. PT AND PT'S SPOUSE STATED UNDERSTANDING ABOUT EDUCATION. PT HAD A COUPLE OF LIQUID/LOOSE STOOLS. FIRST DAY HOLDING STOOL SOFTENER-WILL CONTINUE TO MONITOR BM. PT COMFORTABLE IN BED, PT DENIES HAVING FURTHER CONCERNS AT THIS TIME.
[2019-05-07 20:00] VITALS: BP 128/63
[2019-05-08] VITALS (8 sets, daily range): BP systolic 103–128; BP diastolic 50–68
--- NOTE | 2019-05-08 05:48 | NUR ---
ASSUMED CARE AT 1900. PT VSS WITH ZERO C/O OF PAIN. PT SLEPT THRU NIGHT. PT IS PROGRESSING TOWARD POC. WILL CONTINUE TO MONITOR.
[2019-05-08 08:14] LABS: HEMATOCRIT 26.4 % (42.0-52.0); MCH 32.9 pg (26.0-34.0); MCHC 34.1 g/dL (28.0-37.0); MCV 96.4 fL (80.0-100.0); RBC 2.74 mil/uL (4.50-6.00); RDW 15.7 % (10.5-14.5); WBC 6.1 thou/uL (4.0-11.0)
--- NOTE | 2019-05-08 14:12 | NUR ---
MET WITH PATIENT TENATIVE PLAN FOR DC IN AM. PATIENT REC THERAPY PROGRESSING WELL AND TENATIVE PLAN FOR DC IN AM. GAVE PATIENT RESOURCES FOR HOME HEALTH IF ORDERED HE HAS LIST TO CHOSE AGENCY.
[2019-05-08] MEDS ORDERED: FERREX 150 PLU1 EAC1 PO (14:58)
[2019-05-08] MEDS ORDERED: ADULT LOW DOSE81 MG PO (14:59)
--- NOTE | 2019-05-08 16:44 | NUR ---
FAXED REFERRAL TO [facility] FOR AUTH FOR HH THEY RECEIVED REFERRAL. FAXED REFERRAL TO [facility] SPOKE WITH INTAKE AND THEY CAN ACCEPT PT. FAXED DC ORDERS/SUMMARY TO [facility] RECEIVED CONFIRMATION AND THEY WILL NOTIFY PT TIME OF VISITS.
--- NOTE | 2019-05-08 16:55 | NUR ---
patient to dc home. he has no preference for HH agency whoever is network with his insurance. Faxed referral to [facility] who can accept patient for services. Patient to dc home with HH with [facility].
--- NOTE | 2019-05-08 16:55 | NUR ---
ASSUMED PT CARE AT APPROXIMATELY 0700. A&O X4. ASSESSMENT CHARTED. FALL PRECAUTIONS IN PLACE. VITAL SIGNS STABLE. BLOOD SUGARS STABLE. PT DENIED WANTING 1600 BLOOD SUGAR CHECKED AND PT DENIED WANTING INSULIN. PT DENIED HAVING CHEST PAIN. PT DENIED HAVING SOB. PT DENIED HAVING ACUTE PAIN. PT AMBULATES WITH STANDBY ASSIST. PT DISCHARGING HOME WITH HOME HEALTH. PT RECEIVED DISCHARGE EDUCATION AND INSTRUCTIONS. PT STATED UNDERSTANDING WITH DISCHARGE INSTRUCTIONS AND DENIED HAVING FURTHER QUESTIONS. PT HAVING LOOSE STOOLS. NOTIFIED DR. PT THEN DENIED WANTING ANYTHING FOR LOOSE STOOLS. PT IV DC. PT TELE DC. WAITING FOR PT'S TO ARRIVE ON UNIT. HOSPITAL TRANSPORTATION WILL BE TAKING PT OFF UNIT. PT COMFORTABLE IN BED WITHOUT ANY FURTHER CONCERNS.
--- NOTE | 2019-05-09 10:19 | NUR ---
CONFIRMED WITH INTAKE AT [facility] THAT THEY RECEIVED DC ORDERS/SUMMARY AND RECEIVED AUTH FROM [facility]. THEY WILL NOTIFY PT TIME OF VISITS, ALSO LEFT MSG WITH PT ON WHICH HH AGENCY IS GOING TO SEE HIM AND THAT [facility] IS OUT OF NETWORK WITH HIS INSURANCE.
[2019-05-09 13:40] VITALS: BP 103/61
== END 2019-05-08 17:32 | disposition home health service (06) | DRG 220 ==
LOC: TBA 05:36 → ICU 05:36 → PRE 10:43 → ICU 15:39 → PRE 16:18 → 2N 05-04 15:26 → ENTRNSPT 05-08 17:23 → 2N 05-08 17:32
PROVIDERS: Hospitalist; Internal Medicine; Physician Assistant; ADMIT Surgery Vascular Surgery
DX: I25.10 Atherosclerotic heart disease of native coronary artery without angina pectoris (principal); E87.2 Acidosis; I35.0 Nonrheumatic aortic (valve) stenosis; D69.6 Thrombocytopenia, unspecified; E78.5 Hyperlipidemia, unspecified; I71.4 Abdominal aortic aneurysm, without rupture; E11.9 Type 2 diabetes mellitus without complications; D50.0 Iron deficiency anemia secondary to blood loss (chronic); Z88.0 Allergy status to penicillin
CPT/HCPCS: 10078; 10081; 47000; 47001; 47002; 47297; 47335; 47382; 50010; 50249; 50409; 50456; 50497; 50498; 50668; 51301; 52131; 52259; 52314; 53327; 53358; 54118; 56455; 56524; 56525; 56526; 56527; 56528; 56531; 56534; 56668; 56760; 56898; 57080; 57082; 57093; 57116; 57167; 57224; 62110; 62950; 65003; 65047; 65090; 65120; 65135; 83006; 85076

== ENCOUNTER → 2019-07-01 | Outpatient (CLI) | payer OTHER ==
[~2019-07-01] MED LIST changes: +ADULT LOW DOSE81 MG PO; +FERREX 150 PLU1 EAC1 PO
== END ==
LOC: CAT 08:41
PROVIDERS: Internal Medicine Cardiovascular Disease
DX: Z01.812 Encounter for preprocedural laboratory examination (principal); J90 Pleural effusion, not elsewhere classified; J98.11 Atelectasis; I71.4 Abdominal aortic aneurysm, without rupture; Z95.828 Presence of other vascular implants and grafts

== ENCOUNTER → 2019-07-16 | Outpatient (CLI) | payer OTHER | LOC: MRI 07-08 10:30 | DX: R90.82 White matter disease, unspecified (principal); I25.119 Atherosclerotic heart disease of native coronary artery with unspecified angina pectoris ==

== ENCOUNTER → 2019-08-06 | Outpatient (CLI) | payer OTHER ==
[2019-08-02 10:47] LABS: CREATININE 1.1 mg/dL (0.7-1.3)
== END ==
LOC: LABMALL 08-02 10:15 → EDSTATUS 08-02 11:50 → MRI 06:28 → LABMALL 11:52 → MRI 12:20
PROVIDERS: Psychiatry & Neurology Neuromuscular Medicine
DX: I65.1 Occlusion and stenosis of basilar artery (principal); I63.9 Cerebral infarction, unspecified

== ENCOUNTER → 2020-01-02 | Outpatient (CLI) | payer OTHER, MEDICARE ==
[2020-01-02 12:23] LABS: CREATININE 1.1 mg/dL (0.7-1.3)
== END ==
LOC: CAT 08:18 → SJCVCIMAG 08:18
PROVIDERS: ATTEND Nuclear Medicine Nuclear Cardiology
DX: E04.2 Nontoxic multinodular goiter (principal); I65.23 Occlusion and stenosis of bilateral carotid arteries; I71.4 Abdominal aortic aneurysm, without rupture; I25.119 Atherosclerotic heart disease of native coronary artery with unspecified angina pectoris; I35.9 Nonrheumatic aortic valve disorder, unspecified; I73.9 Peripheral vascular disease, unspecified

== ENCOUNTER → 2020-07-03 | Outpatient (CLI) | payer OTHER, MEDICARE | LOC: SJCVCIMAG 07:58 | PROVIDERS: ATTEND Internal Medicine Cardiovascular Disease | DX: I25.119 Atherosclerotic heart disease of native coronary artery with unspecified angina pectoris (principal); I45.10 Unspecified right bundle-branch block; R00.0 Tachycardia, unspecified; I49.3 Ventricular premature depolarization; I10 Essential (primary) hypertension; E78.00 Pure hypercholesterolemia, unspecified; I71.4 Abdominal aortic aneurysm, without rupture; I77.9 Disorder of arteries and arterioles, unspecified; Z95.1 Presence of aortocoronary bypass graft; Z95.2 Presence of prosthetic heart valve; Z79.899 Other long term (current) drug therapy; Z87.891 Personal history of nicotine dependence ==

== ENCOUNTER → 2020-09-14 | Outpatient (CLI) | payer OTHER, MEDICARE | LOC: SJCVC 11:17 | PROVIDERS: ATTEND Internal Medicine Cardiovascular Disease | DX: I25.10 Atherosclerotic heart disease of native coronary artery without angina pectoris (principal); E11.9 Type 2 diabetes mellitus without complications; R60.0 Localized edema; E78.00 Pure hypercholesterolemia, unspecified; Z95.1 Presence of aortocoronary bypass graft; Z95.2 Presence of prosthetic heart valve; Z87.891 Personal history of nicotine dependence; Z88.0 Allergy status to penicillin ==

== ENCOUNTER → 2020-09-15 | Outpatient (CLI) | payer OTHER, MEDICARE | LOC: SJCVC 09:54 → SJCVCIMAG 09:54 | PROVIDERS: ATTEND Internal Medicine Cardiovascular Disease | DX: I08.1 Rheumatic disorders of both mitral and tricuspid valves (principal); R94.31 Abnormal electrocardiogram [ECG] [EKG]; I11.9 Hypertensive heart disease without heart failure; I45.2 Bifascicular block; I73.9 Peripheral vascular disease, unspecified; I25.119 Atherosclerotic heart disease of native coronary artery with unspecified angina pectoris; I11.0 Hypertensive heart disease with heart failure; I50.30 Unspecified diastolic (congestive) heart failure; E78.00 Pure hypercholesterolemia, unspecified; M79.89 Other specified soft tissue disorders; I77.9 Disorder of arteries and arterioles, unspecified; E11.9 Type 2 diabetes mellitus without complications; Z95.1 Presence of aortocoronary bypass graft; Z95.2 Presence of prosthetic heart valve; Z95.828 Presence of other vascular implants and grafts; Z88.0 Allergy status to penicillin; Z79.82 Long term (current) use of aspirin; Z79.84 Long term (current) use of oral hypoglycemic drugs; Z79.899 Other long term (current) drug therapy; Z87.891 Personal history of nicotine dependence; Z82.49 Family history of ischemic heart disease and other diseases of the circulatory system ==

== ENCOUNTER → 2020-10-02 | Outpatient (CLI) | payer OTHER, MEDICARE | LOC: SJCVC 10:37 | PROVIDERS: ATTEND Internal Medicine Cardiovascular Disease | DX: R94.31 Abnormal electrocardiogram [ECG] [EKG] (principal); R00.0 Tachycardia, unspecified; I49.3 Ventricular premature depolarization; I49.49 Other premature depolarization; I45.2 Bifascicular block; I25.119 Atherosclerotic heart disease of native coronary artery with unspecified angina pectoris; E11.22 Type 2 diabetes mellitus with diabetic chronic kidney disease; I13.0 Hypertensive heart and chronic kidney disease with heart failure and stage 1 through stage 4 chronic kidney disease, or unspecified chronic kidney disease; I50.30 Unspecified diastolic (congestive) heart failure; N18.9 Chronic kidney disease, unspecified; E78.00 Pure hypercholesterolemia, unspecified; I77.9 Disorder of arteries and arterioles, unspecified; I73.9 Peripheral vascular disease, unspecified; Z95.1 Presence of aortocoronary bypass graft; Z95.2 Presence of prosthetic heart valve; Z95.828 Presence of other vascular implants and grafts; Z88.0 Allergy status to penicillin; Z79.84 Long term (current) use of oral hypoglycemic drugs; Z79.82 Long term (current) use of aspirin; Z79.899 Other long term (current) drug therapy; Z98.890 Other specified postprocedural states; Z87.891 Personal history of nicotine dependence ==

== ENCOUNTER → 2020-10-12 | Outpatient (CLI) | payer OTHER, MEDICARE | LOC: HYPER 13:42 | PROVIDERS: ATTEND Emergency Medicine | DX: E11.622 Type 2 diabetes mellitus with other skin ulcer (principal); L97.812 Non-pressure chronic ulcer of other part of right lower leg with fat layer exposed; R60.0 Localized edema; E11.51 Type 2 diabetes mellitus with diabetic peripheral angiopathy without gangrene; E11.22 Type 2 diabetes mellitus with diabetic chronic kidney disease; I13.0 Hypertensive heart and chronic kidney disease with heart failure and stage 1 through stage 4 chronic kidney disease, or unspecified chronic kidney disease; N18.9 Chronic kidney disease, unspecified; I50.30 Unspecified diastolic (congestive) heart failure; I25.119 Atherosclerotic heart disease of native coronary artery with unspecified angina pectoris; I87.2 Venous insufficiency (chronic) (peripheral); I25.10 Atherosclerotic heart disease of native coronary artery without angina pectoris; E78.00 Pure hypercholesterolemia, unspecified; Z79.82 Long term (current) use of aspirin; Z79.84 Long term (current) use of oral hypoglycemic drugs; Z87.891 Personal history of nicotine dependence; Z95.1 Presence of aortocoronary bypass graft; Z95.818 Presence of other cardiac implants and grafts ==

== ENCOUNTER → 2020-10-13 | Outpatient (CLI) | payer OTHER, MEDICARE | LOC: SJCVCIMAG 12:09 | PROVIDERS: ATTEND Nuclear Medicine Nuclear Cardiology | DX: R94.31 Abnormal electrocardiogram [ECG] [EKG] (principal); I45.10 Unspecified right bundle-branch block; I73.9 Peripheral vascular disease, unspecified; I71.4 Abdominal aortic aneurysm, without rupture; I77.9 Disorder of arteries and arterioles, unspecified; I25.119 Atherosclerotic heart disease of native coronary artery with unspecified angina pectoris; K55.1 Chronic vascular disorders of intestine; L97.919 Non-pressure chronic ulcer of unspecified part of right lower leg with unspecified severity; E78.00 Pure hypercholesterolemia, unspecified; E11.22 Type 2 diabetes mellitus with diabetic chronic kidney disease; I13.0 Hypertensive heart and chronic kidney disease with heart failure and stage 1 through stage 4 chronic kidney disease, or unspecified chronic kidney disease; I50.9 Heart failure, unspecified; N18.9 Chronic kidney disease, unspecified; Z95.1 Presence of aortocoronary bypass graft; Z95.828 Presence of other vascular implants and grafts; Z95.2 Presence of prosthetic heart valve; Z98.890 Other specified postprocedural states; Z88.0 Allergy status to penicillin; Z79.84 Long term (current) use of oral hypoglycemic drugs; Z79.82 Long term (current) use of aspirin; Z79.899 Other long term (current) drug therapy; Z87.891 Personal history of nicotine dependence ==

== ENCOUNTER → 2020-10-19 | Outpatient (CLI) | payer OTHER, MEDICARE | LOC: HYPER 08:56 | PROVIDERS: ATTEND Emergency Medicine | DX: E11.622 Type 2 diabetes mellitus with other skin ulcer (principal); L97.812 Non-pressure chronic ulcer of other part of right lower leg with fat layer exposed; L97.822 Non-pressure chronic ulcer of other part of left lower leg with fat layer exposed; I87.2 Venous insufficiency (chronic) (peripheral); E11.51 Type 2 diabetes mellitus with diabetic peripheral angiopathy without gangrene; E11.22 Type 2 diabetes mellitus with diabetic chronic kidney disease; I13.0 Hypertensive heart and chronic kidney disease with heart failure and stage 1 through stage 4 chronic kidney disease, or unspecified chronic kidney disease; I50.30 Unspecified diastolic (congestive) heart failure; N18.9 Chronic kidney disease, unspecified; R60.0 Localized edema; I25.119 Atherosclerotic heart disease of native coronary artery with unspecified angina pectoris; E78.00 Pure hypercholesterolemia, unspecified; E66.9 Obesity, unspecified; Z68.36 Body mass index [BMI] 36.0-36.9, adult; Z87.891 Personal history of nicotine dependence; Z79.899 Other long term (current) drug therapy; Z79.82 Long term (current) use of aspirin; Z79.84 Long term (current) use of oral hypoglycemic drugs; Z79.01 Long term (current) use of anticoagulants; Z95.1 Presence of aortocoronary bypass graft ==

== ENCOUNTER 2020-11-03 11:13 | Inpatient (IN) | payer OTHER, MEDICARE ==
[~2020-11-03] VITALS: Ht 152.4 cm; Wt 107.5 kg
[2020-11-03 11:17] VITALS: BP 130/69
[2020-11-03 12:03] LABS: ABSOLUTE NEUTROPHILS 4.3 thou/uL (1.4-8.2); BASOPHILS 0.9 % (0.0-2.0); EOSINOPHILS 0.8 % (0.0-3.0); HEMATOCRIT 28.4 % (42.0-52.0); HEMOGLOBIN 9.5 gm/dL (14.0-18.0); LYMPHOCYTES 12.3 % (24.0-44.0); MCH 33.7 pg (26.0-34.0); MCHC 33.5 g/dL (28.0-37.0); MCV 100.7 fL (80.0-100.0); MONOCYTES 9.1 % (1.0-8.0); PLATELET COUNT 142 thou/uL (150-400); POLYS 76.9 % (36.0-66.0); RBC 2.83 mil/uL (4.50-6.00); RDW 17.6 % (10.5-14.5); WBC 5.6 thou/uL (4.0-11.0)
[2020-11-03] MEDS ORDERED: DEMADEX20 MG PO (12:04)
[2020-11-03] MEDS ORDERED: GLIMEPIRIDE1 MG PO (12:04)
[2020-11-03 12:19] LABS: CALCIUM 10.3 mg/dL (8.5-10.1); CREATININE 2.7 mg/dL (0.7-1.3); MAGNESIUM 1.5 mg/dL (1.8-2.4); TOTAL BILIRUBIN 1.7 mg/dL (0.2-1.0); TOTAL PROTEIN 7.3 g/dL (6.4-8.2); TROPONIN-I 0.33 ng/mL (<0.06)
[2020-11-03 12:27] LABS: POTASSIUM 2.9 mmol/L (3.5-5.1)
--- NOTE | 2020-11-03 13:08 | EKG ---
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1950 Requested By: Chetna Lockwood Order Number: [id number] MD: Ravi Quinonez Measurements Intervals [place] Rate: 119 P: -64 [place]: 88 QRS: -41 QRSD: 145 T: 183 QT: 388 QTc: 547 Interpretive Statements Sinus or ectopic atrial tachycardia Probable left atrial enlargement RBBB and LAFB Abnormal T, consider ischemia, lateral leads Compared to ECG 05/06/2019 07:12:49 Left anterior fascicular block now present Right bundle-branch block now present T-wave abnormality now present Possible ischemia now present Sinus rhythm no longer present ST (T wave) deviation no longer present Electronically Signed On 11-03-2020 13:08:07 CDT by Ravi Quinonez [email or web address] <ELECTRONICALLY SIGNED> By: Ravi Quinonez MD, [facility] 11/03/20 1308 1129 1129 Ravi Quinonez MD, [facility] /EPI
[2020-11-03] MEDS ORDERED: TOPROL XL100 MG PO (13:47)
[2020-11-03 14:00] LABS: FOLIC ACID 5.9 ng/mL (8.6-58.9)
[2020-11-03 15:12] VITALS: BP 146/73
--- NOTE | 2020-11-03 16:00 | NUR ---
PT ARRIVED TO ICU FROM ER AT 1500. PT WAS CONNECTED TO ICU MONITOR. PT ALERT AND ORIENTED x4. PT ON ROOM AIR. PT NOT COMPLAINING OF ANY SOB OR ANY PAIN. AT BEDSIDE. GAEL NOTIFIED ABOUT ICU VISITATION POLICY AND HOURS. GAEL WAS GIVEN ICU PRIVACY CODE. PT RESTING HEART RATE ELEVATED TO 120-130. NOTIFIED. ORDER FOR METOPROLOL SUCCINATE XL RECEIVED AND GIVEN TO PT. PT WOUND DRESSING CHANGED AND PHOTOGRAPHS IN THE CHART.
[2020-11-03 18:22] VITALS: BP 130/64
--- NOTE | 2020-11-03 19:03 | NUR ---
PT TRANSFERED TO CCU ROOM 208 VIA WHEELCHAIR BY SCARLET MERCADO. REPORT GIVEN TO SCARLET MERCADO.PT GAEL NOTIFIED OF PT TRANSFER.
[2020-11-03 20:31] LABS: CALCIUM 10.2 mg/dL (8.5-10.1); CREATININE 2.9 mg/dL (0.7-1.3)
[2020-11-03 20:42] LABS: POTASSIUM 2.8 mmol/L (3.5-5.1)
[2020-11-03 23:51] VITALS: BP 137/84
[2020-11-04 04:11] VITALS: BP 151/88
[2020-11-04 05:53] LABS: CALCIUM 10.5 mg/dL (8.5-10.1); CREATININE 2.7 mg/dL (0.7-1.3); MAGNESIUM 1.7 mg/dL (1.8-2.4); POTASSIUM 3.1 mmol/L (3.5-5.1)
[2020-11-04 05:54] LABS: ABSOLUTE NEUTROPHILS 4.1 thou/uL (1.4-8.2); BASOPHILS 0.8 % (0.0-2.0); EOSINOPHILS 0.8 % (0.0-3.0); HEMATOCRIT 27.2 % (42.0-52.0); HEMOGLOBIN 9.1 gm/dL (14.0-18.0); LYMPHOCYTES 15.5 % (24.0-44.0); MCH 34.1 pg (26.0-34.0); MCHC 33.6 g/dL (28.0-37.0); MCV 101.8 fL (80.0-100.0); MONOCYTES 9.9 % (1.0-8.0); PLATELET COUNT 141 thou/uL (150-400); RBC 2.68 mil/uL (4.50-6.00); RDW 18.1 % (10.5-14.5); WBC 5.7 thou/uL (4.0-11.0)
[2020-11-04 06:00] LABS: CHOLESTEROL 153 mg/dL (<200); HDL CHOLESTEROL 77 mg/dL (>40); LDL CHOLESTEROL 61 mg/dL (<100); TRIGLYCERIDE 78 mg/dL (<150); TROPONIN-I 0.47 ng/mL (<0.06); VLDL 16 mg/dL (<40)
[2020-11-04 06:17] LABS: SERUM ASSESSMENT Clear
[2020-11-04 07:36] VITALS: BP 144/86
[2020-11-04 11:01] VITALS: BP 126/75
[2020-11-04 15:14] VITALS: BP 132/76
[2020-11-04 17:21] LABS: URINE BILIRUBIN NEGATIVE (Negative); URINE BLOOD 1+ (Negative); URINE CLARITY CLEAR; URINE COLOR YELLOW; URINE GLUCOSE-RANDOM* NEGATIVE (Negative); URINE KETONES NEGATIVE (Negative); URINE LEUKOCYTES NEGATIVE (Negative); URINE NITRITE NEGATIVE (Negative); URINE PROTEIN (DIPSTICK) TRACE (Negative); URINE SPECIFIC GRAVITY 1.015 (1.005-1.035); URINE UROBILINOGEN 0.2 E.U./dl (0.2-1.0)
[2020-11-04 17:29] LABS: PROT/CREAT RATIO 1.3; URINE CREATININE-RANDOM* 33.4 mg/dL; URINE PROTEIN-RANDOM* 42.1 mg/dL (<11.9)
[2020-11-04 17:31] LABS: URINE RBC 0-2 Rare /HPF (0-2); URINE WBC 0-5 Rare /HPF (0-5)
[2020-11-04 17:32] LABS: BACTERIA 1-9 Few /HPF (None Seen); CASTS None Seen /LPF (None Seen); CRYSTALS None Seen /LPF (None Seen); SQUAMOUS None Seen /LPF (0-3)
--- NOTE | 2020-11-04 18:33 | NUR ---
PT RESTING IN BED AT THIS TIME WATCHING TV,DENIES PAIN OR DISCOMFORT. NO SIGNS OF DISTRESS NOTED. VS WNL. PT HAS NO CONERNS AT THIS TIME.
[2020-11-04 20:03] VITALS: BP 141/65
--- NOTE | 2020-11-05 03:47 | NUR ---
ASSESSMENTS CHARTED, MEDS CHARTED GIVEN. SINUS RHYTHM WITH BBB ON TELEMETRY. EDEMA BILATERAL LOWER EXTREMITIES L>R. ACCU CHECK ON SSI. UP AT ROBIN IN ROOM. DENIED PAIN. ON LASIX THERAPY. WOUND CARE PROVIDED. FALL PRECAUTIONS IN PLACE DURING SHIFT.
[2020-11-05 04:46] VITALS: BP 132/61
[2020-11-05 06:08] LABS: ALBUMIN 3.7 g/dL (3.4-5.0); CALCIUM 10.2 mg/dL (8.5-10.1); CREATININE 2.8 mg/dL (0.7-1.3); PHOSPHORUS 3.2 mg/dL (2.5-4.9); POTASSIUM 3.6 mmol/L (3.5-5.1)
[2020-11-05 07:19] VITALS: BP 127/75
[2020-11-05 10:59] VITALS: BP 112/61
[2020-11-05 15:17] VITALS: BP 116/69
[2020-11-05 21:06] VITALS: BP 116/58
--- NOTE | 2020-11-06 03:31 | NUR ---
ASSESSMENTS CHARTED, MEDS CHARTED GIVEN. ALERT AND ORIENTED, SINUS RHYTHM WITH BBB ON TELEMETRY. LUNGS DIMINISHED ON ROOM AIR. UP AT ROBIN IN ROOM. PATIENT'S BILAT LOWER EXTREMITIES WERE REDRESSED. PATIENT DENIES PAIN. PLAN OF CARE IS TO GO HOME IN AM. FALL PRECAUTIONS IN PLACE DURING SHIFT.
[2020-11-06 04:10] VITALS: BP 109/59
[2020-11-06 06:04] LABS: ALBUMIN 3.5 g/dL (3.4-5.0); CALCIUM 9.9 mg/dL (8.5-10.1); CREATININE 3.2 mg/dL (0.7-1.3); PHOSPHORUS 3.8 mg/dL (2.5-4.9); POTASSIUM 3.2 mmol/L (3.5-5.1)
[2020-11-06 08:00] VITALS: BP 128/65
[2020-11-06 12:00] VITALS: BP 105/49
[2020-11-06 14:05] VITALS: BP 105/49
[2020-11-06 14:51] VITALS: BP 105/49
--- NOTE | 2020-11-06 14:53 | NUR ---
Pt dcing home today and requested resumptions of hh services per [facility] . He was being seen by their RN prior to admission. [facility] aware and can accept for readmission. The attending was notified and the dc material planner to fax final orders for resumption of care on (Monday per request). No other needs noted. Pt was up in his room and improved after being treated for CHF.
--- NOTE | 2020-11-06 17:11 | NUR ---
patient discharge at 1408. patient left facility in wheelchair with . all discharge education complete.
[2020-11-06 23:06] LABS: COMPLEMENT-C3 128 mg/dL (82-167); COMPLEMENT-C4 29 mg/dL (12-38)
[2020-11-07] MEDS ORDERED: SPIRONOLACTONE25 MG PO (19:36)
[2020-11-07] MEDS ORDERED: K-DUR 20 MEQ T20 MEQ PO (19:38)
[2020-11-09 10:06] LABS: IgA 9 mg/dL (61-437); IgG 219 mg/dL (603-1613); IgM 6 mg/dL (20-172)
[2020-11-09 13:07] LABS: GLOBULIN TOTAL 2.5 g/dL (2.2-3.9); M-SPIKE Not Observed g/dL (Not Observed)
--- NOTE | 2020-11-09 15:56 | HC ---
[facility] [place] [address] CONSULTATION Name: LIVIA ANTONIO Room #: 208-P [facility] IN M.R.#: [id number] Admission: 11/03/20 Attend Phys: Kip Subramanian MD Discharge: 11/06/20 Date of : 54 Report #: [id number] THIS REPORT FOR: cc: Connie Navarrete MD, Kerry B. MD Althoff, Jeffrey R. MD ~ DATE OF SERVICE: 11/04/2020 CHIEF COMPLAINT: Venous ulcers to the right lower extremity and lower extremity edema. HISTORY OF PRESENT ILLNESS: This is a 70-year-old male patient who was admitted yesterday with complaints of increasing dyspnea. He has a history of diabetes and hypertension and coronary artery disease. He has had lower extremity ulcerations that have been slow to heal. I have been asked to see him with regard to wound care. PAST MEDICAL HISTORY: Positive for type 2 diabetes mellitus, hyperlipidemia, cerebrovascular accident, gastroesophageal reflux disease, coronary artery disease, status post CABG, history of an abdominal aortic aneurysm with stent graft placement. SOCIAL HISTORY: The patient has a history of smoking, 2 packs per day in the past and has not smoked within the last year. Negative alcohol use. FAMILY HISTORY: Noncontributory. MEDICATIONS: Include torsemide, glimepiride, metoprolol, metformin, Actos, Crestor. ALLERGIES: PENICILLIN. REVIEW OF SYSTEMS: CONSTITUTIONAL: The patient denies fever, chills or weight loss. NEUROLOGICAL: The patient denies focal weakness, numbness or tingling. EYES: The patient denies visual changes, redness, or drainage. ENT: The patient denies earache, nasal drainage, sore throat. CARDIOVASCULAR: The patient denies chest pain, palpitation or diaphoresis. PULMONARY: The patient denies cough or shortness of breath. GASTROINTESTINAL: The patient denies nausea, vomiting or abdominal pain. ORTHOPEDIC: The patient notes ulceration of the lower extremities. Denies significant pain associated with them. He has moderate itching and has been reluctant to have a compression in the past. LABORATORY DATA: Include sodium 140, potassium 3.1, chloride 99, CO2 of 26, BUN [facility] [address] [place] [address] CONSULTATION Name: LIVIA ANTONIO Room #: 208-P DIS IN M.R.#: [id number] Admission: 11/03/20 Attend Phys: Kip Subramanian MD Discharge: 11/06/20 Date of : 54 Report #: [id number], creatinine 2.7, glucose 102, calcium is 10.5. White blood cell count 5.7 with a hemoglobin of 9.1. CLINICAL IMPRESSION: 1. Venous type ulcerations to the right lower extremity. 2. Chronic lower extremity edema consistent with venous insufficiency and likely related to volume overload related to congestive heart failure. 3. Congestive heart failure with ejection fraction 48%. He has a history of coronary artery disease. 4. History of severe previous tobacco use. RECOMMENDATIONS: Recommend topical Xeroform and bordered foam daily. AmLactin to his skin. Recommend Tubigrips to control edema and elevation of the legs bilaterally. We will hope that he will allow us to leave the Tubigrip dressings in place. Hopefully, the AmLactin will help with some of the pruritus associated with the compression. Continue other medical management. I appreciate being asked to see him in consultation. <ELECTRONICALLY SIGNED> By: Dez Don MD 11/09/20 1556 1727 08 Dez Don MD /nt
[2020-11-09 18:06] LABS: ANA INTERPRETATION Negative (Negative)
== END 2020-11-06 14:58 | disposition home health service (06) | DRG 291 ==
LOC: ER 11:13 → 2N 13:25 → EROBS 13:25 → ICU 14:45 → 2N 19:51
PROVIDERS: Emergency Medicine; Internal Medicine Nephrology; Nurse Practitioner; ADMIT Internal Medicine; ATTEND Internal Medicine
DX: I13.0 Hypertensive heart and chronic kidney disease with heart failure and stage 1 through stage 4 chronic kidney disease, or unspecified chronic kidney disease (principal); I50.33 Acute on chronic diastolic (congestive) heart failure; N17.9 Acute kidney failure, unspecified; L97.919 Non-pressure chronic ulcer of unspecified part of right lower leg with unspecified severity; Z68.42 Body mass index [BMI] 45.0-49.9, adult; K21.9 Gastro-esophageal reflux disease without esophagitis; E78.5 Hyperlipidemia, unspecified; E87.6 Hypokalemia; I25.10 Atherosclerotic heart disease of native coronary artery without angina pectoris; D69.6 Thrombocytopenia, unspecified; E11.51 Type 2 diabetes mellitus with diabetic peripheral angiopathy without gangrene; I35.0 Nonrheumatic aortic (valve) stenosis; N18.9 Chronic kidney disease, unspecified; I87.2 Venous insufficiency (chronic) (peripheral); E11.22 Type 2 diabetes mellitus with diabetic chronic kidney disease; D53.9 Nutritional anemia, unspecified; S81.801A Unspecified open wound, right lower leg, initial encounter; S81.802A Unspecified open wound, left lower leg, initial encounter; R53.81 Other malaise; R63.4 Abnormal weight loss; E55.9 Vitamin D deficiency, unspecified; Z86.73 Personal history of transient ischemic attack (TIA), and cerebral infarction without residual deficits; Z88.0 Allergy status to penicillin; Z87.891 Personal history of nicotine dependence; Z95.1 Presence of aortocoronary bypass graft; Z95.2 Presence of prosthetic heart valve; Z79.899 Other long term (current) drug therapy; X58.XXXA Exposure to other specified factors, initial encounter; Y93.89 Activity, other specified; Y92.89 Other specified places as the place of occurrence of the external cause; Y99.8 Other external cause status
CPT/HCPCS: 10081

== ENCOUNTER 2020-11-07 16:27 | Inpatient (IN) | payer OTHER, MEDICARE ==
[~2020-11-07] VITALS: Ht 175.3 cm; Wt 110.0 kg
[~2020-11-07 16:27] MED LIST changes: +DEMADEX20 MG PO; +GLIMEPIRIDE1 MG PO; +TOPROL XL100 MG PO
[2020-11-07 16:29] VITALS: BP 168/78
[2020-11-07 17:26] LABS: BASOPHILS 0.8 % (0.0-2.0); EOSINOPHILS 0.4 % (0.0-3.0); HEMATOCRIT 26.4 % (42.0-52.0); HEMOGLOBIN 8.8 gm/dL (14.0-18.0); LYMPHOCYTES 7.8 % (24.0-44.0); MCH 33.5 pg (26.0-34.0); MCHC 33.3 g/dL (28.0-37.0); MCV 100.7 fL (80.0-100.0); MONOCYTES 5.1 % (1.0-8.0); PLATELET COUNT 122 thou/uL (150-400); POLYS 85.9 % (36.0-66.0); RBC 2.62 mil/uL (4.50-6.00); RDW 18.2 % (10.5-14.5)
[2020-11-07 17:41] LABS: CREATININE 3.3 mg/dL (0.7-1.3); POTASSIUM 4.1 mmol/L (3.5-5.1)
[2020-11-07 17:45] LABS: ALBUMIN 3.8 g/dL (3.4-5.0); DIRECT BILIRUBIN 0.7 mg/dL (<0.1-0.2); TOTAL BILIRUBIN 1.7 mg/dL (0.2-1.0); TOTAL PROTEIN 6.9 g/dL (6.4-8.2); TROPONIN-I 0.21 ng/mL (<0.06)
[2020-11-07 18:18] LABS: BE(vivo) 4.8 mmol/L (-2 to +3); HCO3 28.8 mmol/L (22.0-26.0); PO2 74.7 mmHg (80.0-100.0); pH 7.475 (7.360-7.450); sO2 95.8 % (92.0-98.0)
[2020-11-07] MEDS ORDERED: SPIRONOLACTONE25 MG PO (19:36)
[2020-11-07] MEDS ORDERED: K-DUR 20 MEQ T20 MEQ PO (19:38)
[2020-11-07 20:36] VITALS: BP 134/69
[2020-11-07 20:41] LABS: URINE BILIRUBIN NEGATIVE (Negative); URINE BLOOD 2+ (Negative); URINE CLARITY CLEAR; URINE COLOR YELLOW; URINE GLUCOSE-RANDOM* NEGATIVE (Negative); URINE KETONES NEGATIVE (Negative); URINE LEUKOCYTES-REFLEX TRACE (Negative); URINE NITRITE-REFLEX NEGATIVE (Negative); URINE PROTEIN (DIPSTICK) 1+ (Negative); URINE SPECIFIC GRAVITY 1.015 (1.005-1.035); URINE UROBILINOGEN 0.2 E.U./dl (0.2-1.0)
[2020-11-07 20:49] VITALS: BP 134/69
[2020-11-07 20:49] LABS: SQUAMOUS 4-10 Moderate /LPF (0-3)
[2020-11-07 20:50] LABS: AMORPHOUS URATES Few /LPF (None Seen); CASTS None Seen /LPF (None Seen); RENAL EPITHELIAL CELLS 4-10 Moderate /LPF (None Seen); URINE RBC 3-10 Few /HPF (0-2); URINE WBC-REFLEX 6-15 Few /HPF (0-5)
[2020-11-07 21:17] VITALS: BP 128/63
[2020-11-08] VITALS (16 sets, daily range): BP systolic 81–110; BP diastolic 46–68
[2020-11-08 02:12] LABS: HEMOGLOBIN 8.5 gm/dL (14.0-18.0)
[2020-11-08 02:14] LABS: HEMATOCRIT 26.1 % (42.0-52.0); MCH 33.1 pg (26.0-34.0); MCHC 32.6 g/dL (28.0-37.0); MCV 101.7 fL (80.0-100.0); PLATELET COUNT 101 thou/uL (150-400); RBC 2.56 mil/uL (4.50-6.00); RDW 17.8 % (10.5-14.5); WBC 12.3 thou/uL (4.0-11.0)
[2020-11-08 02:38] LABS: ALBUMIN 3.6 g/dL (3.4-5.0); CALCIUM 9.5 mg/dL (8.5-10.1); CREATININE 4.1 mg/dL (0.7-1.3); MAGNESIUM 1.2 mg/dL (1.8-2.4); POTASSIUM 3.3 mmol/L (3.5-5.1); TOTAL BILIRUBIN 2.3 mg/dL (0.2-1.0); TOTAL PROTEIN 6.5 g/dL (6.4-8.2)
[2020-11-08 02:42] LABS: ABSOLUTE NEUTROPHILS 10.6 thou/uL (1.4-8.2); ANISOCYTOSIS 1+
--- NOTE | 2020-11-08 03:48 | NUR ---
Admission history and assessments completed. Care plan initiated. Abnormal labs reported. High fall risks. Fall precautions in place. Enhanced precautions pending COVID results. Wounds documented.
--- NOTE | 2020-11-08 07:45 | NUR ---
REPORTED CRITICAL AND ABNORMAL LABS TO DR ULRICH
--- NOTE | 2020-11-08 08:19 | NUR ---
INFORMED DR ULRICH OF PT VITALS. PT DESAT WITH AMBULATION. PT NOW AT 4L VIA AL
--- NOTE | 2020-11-08 10:00 | HC ---
[facility] [place] [address] CONSULTATION Name: LIVIA ANTONIO Room #: 354-P ADM IN M.R.#: [id number] Admission: 11/07/20 Attend Phys: Percy Mukherjee MD Discharge: Date of : 54 Report #: [id number] THIS REPORT FOR: cc: Connie Navarrete MD, Kerry B. MD Barry, Joseph W. MD ~ DATE OF SERVICE: 11/08/2020 INFECTIOUS DISEASE CONSULTATION ATTENDING PHYSICIAN: Dr. Mukherjee. REASON FOR EVALUATION: Gram-negative septicemia, associated marked lactic acidemia, renal failure with acute worsening. HISTORY OF PRESENT ILLNESS: Chart reviewed, patient examined. This is a 70-year-old gentleman with diabetes mellitus complicated by cardiomyopathy. He has had a previous stroke, who was actually just hospitalized in last few days and readmitted, had issue with dyspnea, felt to have congestive heart failure. Bilateral lower extremity were swollen as well, had a component likely of venous stasis insufficiency, has chronic ulcers, perhaps a cellulitic component. He was discharged only to return on day of admission with fevers, worsening encephalopathy, was noted to be dyspneic as well. As part of the initial evaluation, blood cultures were collected, now 2/2 with growth of gram-negative rods. Urinalysis did show moderate pyuria, 6-15 white cells, 10-30 bacteria. Lactic acid initially was elevated at 5.5, repeat this morning was 11.9 and then 14.5. He actually denies any particular difficulties. On questioning, he is generally lucid. He denies any pain specific to the abdomen and flanks. He is on supplemental oxygen at 4 liters per nasal cannula at this point. He was empirically started on therapy with meropenem. ALLERGIES: Listed to PENICILLINS, it is unclear and the patient felt it was likely as a child. MEDICATIONS: Include glimepiride, aspirin, ferrous sulfate, atorvastatin, insulin lispro, meropenem, ondansetron, morphine, had received a dose of vancomycin as well. 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 SOCIAL HISTORY: Nonsmoker, no ethanol, no illicit drug use. [address] [address] CONSULTATION Name: LIVIA ANTONIO Room #: 354-P [facility] IN M.R.#: [id number] Admission: 11/07/20 Attend Phys: Percy Mukherjee MD Discharge: Date of : 54 Report #: [id number] FAMILY HISTORY: Noncontributory. REVIEW OF SYSTEMS: A 10-point review of systems otherwise unremarkable. PHYSICAL EXAMINATION: GENERAL: He is alert, cooperative, seems to be tracking well, irnz-dr-qaarfyiz distress. VITAL SIGNS: T-max overnight of 101.4, more recently 97.5, pulse 101, respirations 20, blood pressure 92/56. SKIN: Warm, dry, no rashes. HEENT: Normocephalic. Extraocular muscles intact. Nasal cannula in place. NECK: Supple. LUNGS: Few scattered coarse breath sounds, some crackles at the bases. HEART: Regular. Borderline tachycardic. Does have a pansystolic murmur. ABDOMEN: Obese, somewhat firm. No apparent tenderness including the flanks. GENITOURINARY AND RECTAL: Deferred. LABORATORY DATA: Most recent lactic acid 14.5. Blood cultures, gram-negative rods, awaiting ID. Electrolytes: Sodium 140, potassium 3.3, chloride 96, bicarbonate is 27, anion gap of 17, BUN and creatinine 48 and 4.1, glucose of 96. AST of 79, ALT of 48, albumin of 3.6, total protein of 6.5. CBC: White count of 12.3, H and H 8.5 and 26.1, platelets 101 and have a bit of a monocytosis. Coronavirus testing was negative. Urinalysis as described above. ASSESSMENT AND PLAN: Gram-negative septicemia, likely on the basis of genitourinary tract, source not clear if he had recent catheter, seems to exacerbate. This is otherwise tenuous position including worsening renal failure, likely has a degree of pulmonary edema. Imaging of the chest and abdomen is pending. We will await culture results. Continue to monitor expectantly, certainly at risk for additional complications. We will add incentive spirometry. Monitor closely. <ELECTRONICALLY SIGNED> By: Del Topete MD 11/08/20 1000 0933 0953 Del Topete MD /nt
--- NOTE | 2020-11-08 11:19 | NUR ---
pgd dr arnett for procalcitonin lab result
--- NOTE | 2020-11-08 11:22 | NUR ---
IV TEAM PAGED. PT PERIPHERAL IV INFILTRATED.
--- NOTE | 2020-11-08 11:30 | EKG ---
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1950 Requested By: Neftali Flores Order Number: [id number] MD: Ravi Quinonez Measurements Intervals [place] Rate: 110 P: 28 MI: 148 QRS: -49 QRSD: 141 T: 139 QT: 326 QTc: 442 Interpretive Statements Sinus tachycardia RBBB and LAFB Repol abnrm suggests ischemia, diffuse leads Baseline wander in lead(s) V4 Compared to ECG 11/03/2020 11:29:26 Early repolarization now present T-wave abnormality no longer present Possible ischemia still present Electronically Signed On 11-08-2020 11:30:08 CDT by Ravi Quinonez [email or web address] <ELECTRONICALLY SIGNED> By: Ravi Quinonez MD, [facility] 11/08/20 1130 1659 1659 Ravi Quinonez MD, [facility] /EPI
--- NOTE | 2020-11-08 11:31 | EKG ---
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1950 Requested By: Percy Mukherjee Order Number: [id number] MD: Ravi Quinonez Measurements Intervals [place] Rate: 105 P: 22 SC: 116 QRS: -41 QRSD: 142 T: 134 QT: 414 QTc: 548 Interpretive Statements Sinus tachycardia Probable left atrial enlargement Right bundle branch block Abnormal T, consider ischemia, lateral leads Compared to ECG 11/07/2020 16:59:30 T-wave abnormality now present Left anterior fascicular block no longer present Early repolarization no longer present Possible ischemia still present Electronically Signed On 11-08-2020 11:31:00 CDT by Ravi Quinonez [email or web address] <ELECTRONICALLY SIGNED> By: Ravi Quinonez MD, [facility] 11/08/20 1131 8 8 Ravi Quinonez MD, [facility] /EPI
[2020-11-08 11:35] LABS: BE(vivo) -8.6 mmol/L (-2 to +3); HCO3 16.2 mmol/L (22.0-26.0); PCO2 30.6 mmHg (35.0-45.0); PO2 105.2 mmHg (80.0-100.0); pH 7.341 (7.360-7.450); sO2 97.6 % (92.0-98.0)
--- NOTE | 2020-11-08 16:28 | NUR ---
CONSULTED TO PLACE A LINE FOR PATIENT. CONSENT OBTAINED AFTER DISCUSSING RISK VS BENIFITS. A #6F TRIPLE LUMEN CENTRAL LINE WAS PLACED PER HOSPITAL POLICY. THE LINE WAS ADVANCED WITH SOME RESISTANCE NOTED AND A SMAL DAVID WAS NEEDED FOR THE INTRODUCER TO PASS. POST PLACEMENT PRESSURE WAS HELD FOR 10MN TO DECREASE BLEEDING. IMMEDIATLY AFTER PLACEMNT THE PATIENT WAS SITTING AT BEDSIDE NEEDING TO HAVE A BOWEL MOVEMENT. AGAIN PRESSURE WAS HELD THE SITE WAS AGAIN BLEEING. THE PATIENT INSISTED ON SITTING ON THE COMMODE AND THE STRAINING TO HAVE A BM INCREASED THE BLEEDING EVEN WITH PRESSURE BEEING MANUALLY HELD. AFTER RETURNING PATIENT BACK TO BED PRESSURE WAS AGAIN HELD X20. IT WAS DIFFICULT TO MAINTAIN STERILITY. A STAT CHEST XRAY SHOWING LINE COILED WAS NOTED. THE LINE WAS WITHDRAWN 4 CM AND POWER FLUSHED. 2ND CHEST XRAY NOTED THE LINE IN THE SVC AND RELEASED FOR USE
--- NOTE | 2020-11-08 16:30 | NUR ---
PATIENT ADMITTED TO ICU ROOM 238 FROM 4W BY BED. PLACED ON SALESPERSON FLORIST SUPPLIES AND O2 SAT. ASSESSMENT COMPLETED
--- NOTE | 2020-11-08 19:00 | NUR ---
PATIENT TAKEN TO CT AND BACK WITHOUT INCIDENT .
[2020-11-09] VITALS (60 sets, daily range): BP systolic 90–131; BP diastolic 46–75
--- NOTE | 2020-11-09 03:16 | NUR ---
Pt is very impulsive but is able to answer all of axo questions correctly. He consistently thinks he needs to have a BM and wants to go on the commode. After 15 x of assisting pt to commode and x1 putting on the bedpan, no bm but occassional smear. Pt has tried to get out of bed multiple times and not hitting the call light. RN tries to educate pt that he is a fall risk and he needs to call for help if he needs to go. He states "I wont fall" as his blankets were wrapped around his ankle and his monitoring devices wrapped in different directions. Pt is very anxious and fixated on trying to have a BM and will not quit trying until doing so. The more he tries and fails to have a BM, the more anxiouis and irritated he gets. He denies any abdominal pain/cramping/N/V. Salima MORTGAGE PROTECTION SPECIALIST was notified and 1x dose of 1 mg of ativan was given. Pt is continued to watch closely with bed alarm on.
[2020-11-09 06:32] LABS: BASOPHILS 0.4 % (0.0-2.0); EOSINOPHILS 0.2 % (0.0-3.0); HEMATOCRIT 22.3 % (42.0-52.0); HEMOGLOBIN 7.3 gm/dL (14.0-18.0); LYMPHOCYTES 6.1 % (24.0-44.0); MCH 33.6 pg (26.0-34.0); MCHC 32.8 g/dL (28.0-37.0); MCV 102.4 fL (80.0-100.0); MONOCYTES 7.7 % (1.0-8.0); POLYS 85.6 % (36.0-66.0); RBC 2.18 mil/uL (4.50-6.00); RDW 18.1 % (10.5-14.5); WBC 10.5 thou/uL (4.0-11.0)
--- NOTE | 2020-11-09 06:50 | NUR ---
ORDERS RECEIVED, CHART REVIEWED. TRANSFER FROM 4W TO ICU D/T INCREASED O2 NEEDS AND CRITICAL LAB RESULTS. WILL PLACE ON HOLD AND AWAIT NEW ORDER WHEN APPROPRIATE FOR OT EVAL.
[2020-11-09 06:55] LABS: ALBUMIN 3.5 g/dL (3.4-5.0); CALCIUM 9.1 mg/dL (8.5-10.1); MAGNESIUM 1.7 mg/dL (1.8-2.4); POTASSIUM 4.6 mmol/L (3.5-5.1); TOTAL PROTEIN 6.1 g/dL (6.4-8.2)
[2020-11-09 07:03] LABS: TROPONIN-I 4.42 ng/mL (<0.06)
--- NOTE | 2020-11-09 07:27 | NUR ---
ORDERS FOR EVAL AND TREAT HOWEVER Pt TRANSFERRED TO ICU. WILL PLACE ON HOLD AND AWAIT NEW ORDERS WHEN APPROPRIATE
--- NOTE | 2020-11-09 07:50 | EKG ---
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 : 1950 Requested By: Ravi Quinonez Order Number: [id number] MD: Ravi Quinonez Measurements Intervals [place] Rate: 101 P: -12 MN: 125 QRS: -39 QRSD: 142 T: 144 QT: 355 QTc: 461 Interpretive Statements Sinus tachycardia Right bundle branch block Abnormal T, consider ischemia, lateral leads Compared to ECG 11/08/2020 09:19:36 No significant changes Electronically Signed On 11-09-2020 7:50:32 CDT by Ravi Quinonez [email or web address] <ELECTRONICALLY SIGNED> By: Ravi Quinonez MD, [facility] 11/09/20 0750 1141 1141 Ravi Quinonez MD, [facility] /EPI
[2020-11-09 09:02] LABS: ANISOCYTOSIS 2+
[2020-11-09 09:05] LABS: LARGE PLATELETS RARE
[2020-11-09 09:06] LABS: PLATELET COUNT 75 thou/uL (150-400); PLATELET ESTIMATE 90
--- NOTE | 2020-11-09 11:25 | 2DMMODE ---
[facility] [place] [address] 2 D/M-MODE ECHOCARDIOGRAM Name: LIVIA ANTONIO Room #: 238-P ADM IN M.R.#: [id number] Admission: 11/07/20 Attend Phys: Percy Mukherjee MD Discharge: Date of : 54 Report #: [id number] THIS REPORT FOR: cc: Connie Navarrete MD, Kerry B. MD Santiago, Patrick MD [facility] ~ APPROVED REPORT Study performed: 11/09/2020 09:27:57 EXAM: Comprehensive 2D, Doppler, and color-flow Echocardiogram Patient Location: ICU Room #: 238 Status: routine BSA: 2.20 HR: 103 bpm Rhythm: Tachycardia Other Information Study Quality: Good Indications Aortic Valve Disease Congestive Heart Failure Diabetes Dyspnea CAD Hypertension/HDD 2D Dimensions RVDd: 33.74 mm IVSd: 14.40 (7-11mm) LVOT Diam: 19.03 (18-24mm) LVDd: 41.59 mm PWd: 14.08 (7-11mm) Ascending Ao: 36.93 (22-36mm) LVDs: 20.07 (25-40mm) Left Atrium: 50.41 (27-40mm) Aortic Root: 28.65 mm IVC: 28.00 mm Volumes Left Atrial Volume (Systole) Single Plane 4CH: 62.85 mL Single Plane 2CH: 91.17 mL LA ESV Index: 37.00 mL/m2 [facility] [address] [address] 2 D/M-MODE ECHOCARDIOGRAM Name: LIVIA ANTONIO Anais Room #: 238-P ADM IN M.R.#: [id number] Admission: 11/07/20 Attend Phys: Percy Mukherjee MD Discharge: Date of : 54 Report #: [id number] Aortic Valve AoV Peak Miller.: 2.56 m/s AO Peak Gr.: 26.12 mmHg LVOT Max P.53 mmHg AO Mean Gr.: 17.87 mmHg LVOT Mean P.13 mmHg AO V2 Mean: 2.01 m/s LVOT Max V: 1.19 m/s AO V2 VTI: 44.49 cm LVOT Mean V: 0.97 m/s JAYLAN (VTI): 1.46 cm2 LVOT V1 VTI: 22.89 cm JAYLAN Vmax: 1.33 cm2 SV (LVOT): 65.10 mL Mitral Valve E/A Ratio: 2.1 MV Decel. Time: 216.49 ms MV E Max Miller.: 1.58 m/s MV A Miller.: 0.77 m/s MV PHT: 62.78 ms IVRT: 36.91 ms Pulmonary Valve PV Peak Miller.: 0.95 m/s PV Peak Gr.: 3.61 mmHg Tricuspid Valve TR Peak Miller.: 2.89 m/s TR Peak Gr.: 33.34 mmHg PA Pressure: 48.00 mmHg Left Ventricle The left ventricle is normal size. Mild concentric left ventricular hypertrophy. The left ventricular systolic function is normal. The left ventricular ejection fraction is within the normal range. LVEF is 55-60%. This study is not technically sufficient to allow evaluation of the LV diastolic function. Right Ventricle The right ventricle is normal size. The right ventricular systolic function is normal. Atria Left atrium is dilated. Right atrium is dilated. Aortic Valve #23 bioprosthetic aortic valve is present. Trace aortic regurgitation. There is no aortic valvular stenosis. Mitral Valve The mitral valve is normal in structure. Mild mitral regurgitation. [facility] [address] [place] [address] 2 D/M-MODE ECHOCARDIOGRAM Name: LIVIA ANTONIO Room #: 238-P [facility] IN ..#: [id number] Admission: 11/07/20 Attend Phys: Percy Mukherjee MD Discharge: Date of : 54 Report #: [id number] No evidence of mitral valve stenosis. Tricuspid Valve The tricuspid valve is normal in structure. There is moderate to severe tricuspid regurgitation. Estimated PAP 48 mmHg. There is moderate pulmonary hypertension. Pulmonic Valve The pulmonary valve is normal in structure. Mild pulmonic regurgitation. Great Vessels The aortic root is normal in size. The inferior vena cava is dilated with no inspiratory collapse. Pericardium There is no pericardial effusion. <Conclusion> Normal left ventricular size/mild concentric hypertrophy Ejection fraction 50-65% Normal right ventricle size/function Mild biatrial enlargement Color-flow Doppler study was performed of the aortic/mitral/tricuspid/pulmonary valve Mild mitral valve insufficiency Moderatesevere tricuspid valve insufficiency Moderate to pulmonary hypertension PA pressure estimated 48 mmHg No pericardial effusion Abnormal aortic root size. <ELECTRONICALLY SIGNED> By: Ravi Quinonez MD, FACC 11/09/20 1124 23 23 Ravi Quinonez MD, FACC /INF
--- NOTE | 2020-11-09 12:35 | NUR ---
chart review. cm noted he dc on Monday and returned here on the Monday. discussed during am rounds. he in restraints, cardica following. he resting with eyes closed. cm called and spoke with mckenzie, intro to dcp and cm. only want to know if his room can be moved so i can visit more than 15min per day. has 3 steps enter home and the stair up to upstairs for extra bedrooms. everything is on main level. terrace hh."/mckenzie . he lives at home with , she assist him with lower ext dressing and shoes. he able to dress upper and feed self. have higher toilet, walk in shower that will hold wheel chair. will cont following as needed for dc needs. use of oxygen and has no home o2.
--- NOTE | 2020-11-09 18:40 | NUR ---
present today, updated on pt status. pt awake talking to her. she was able to convince him to eat a few bites of lunch.
[2020-11-10] VITALS (32 sets, daily range): BP systolic 111–138; BP diastolic 62–93
--- NOTE | 2020-11-10 07:54 | NUR ---
PT WAS MORE ALERT AND COOPERATIVE DURING NOC. DID NOT TRY TO GET OUT OF BED UNTIL THIS AM. AND ALSO PULLED OUT PICC LINE. RESTRAINTS WERE ORDERED PT CONTINUE TO BE IMPULSIVE IN TRYING TO GET OUT OF BED. BED ALARM ON,
--- NOTE | 2020-11-10 08:08 | NUR ---
Note Given: Y Facility List Provided:Y Facility Jose: None chosen at this time Matilde Li NP discussed BPCI with this pt 11/09/20
[2020-11-10 09:57] LABS: HEMATOCRIT 21.3 % (42.0-52.0); HEMOGLOBIN 7.1 gm/dL (14.0-18.0); MCH 33.9 pg (26.0-34.0); MCHC 33.3 g/dL (28.0-37.0); MCV 101.6 fL (80.0-100.0); RBC 2.1 mil/uL (4.50-6.00); RDW 18.1 % (10.5-14.5); WBC 6.9 thou/uL (4.0-11.0)
[2020-11-10 10:10] LABS: ALBUMIN 3.5 g/dL (3.4-5.0); CALCIUM 8.8 mg/dL (8.5-10.1); CREATININE 5.7 mg/dL (0.7-1.3); PHOSPHORUS 7.5 mg/dL (2.6-4.7); POTASSIUM 4.7 mmol/L (3.5-5.1)
[2020-11-10 10:26] LABS: ALBUMIN 3.5 g/dL (3.4-5.0); DIRECT BILIRUBIN 3.4 mg/dL (<0.1-0.2); TOTAL BILIRUBIN 5.4 mg/dL (0.2-1.0); TOTAL PROTEIN 6.3 g/dL (6.4-8.2)
--- NOTE | 2020-11-10 10:30 | NUR ---
Phyllis, present. updated on pt status, labs. Dr. Orozco called her this morning. She is providing support to her and he is responsive to her support.
--- NOTE | 2020-11-10 10:51 | HC ---
[facility] [place] [address] CONSULTATION Name: LIVIA ANTONIO Room #: 238-P ADM IN M.R.#: [id number] Admission: 11/07/20 Attend Phys: Percy Mukherjee MD Discharge: Date of : 54 Report #: [id number] THIS REPORT FOR: cc: Connie Navarrete MD, Kerry B. MD Althoff,Dez Guerrero MD ~ DATE OF SERVICE: 11/09/2020 CHIEF COMPLAINT: Cellulitis to the right and venous ulcer to the right lower extremity. HISTORY OF PRESENT ILLNESS: This is a 70-year-old male patient with whom I am familiar from the hospital very recent hospitalization. We saw him recently when he was admitted for exacerbation of congestive heart failure, was noted to have some ulcers of his right lower leg that were felt to be venous in origin with some very mild surrounding cellulitis. He has been reluctant to consider compression bandaging to his legs, but did agree with Tubigrip stockings and use of AmLactin lotion. The AmLactin lotion was sufficient in reducing the pruritus that allowed him to keep the compression in place. He was discharged with gentamicin, Xeroform and border foam dressings daily with AmLactin and compression with instructions to follow up in the clinic. He is, however, readmitted and is currently in the intensive care unit after having returned with worsening shortness of breath, fever and chills and then now altered mental status. The patient at this point in time is somnolent, not able to provide any information about himself. PAST MEDICAL HISTORY: Significant for type 2 diabetes mellitus, hyperlipidemia, previous cerebrovascular accident, gastroesophageal reflux disease, coronary artery disease, status post CABG, history of abdominal aortic aneurysm with stent graft placement. SOCIAL HISTORY: The patient has a history of smoking 2 packs per day in the past, has not smoked in the last year. No alcohol use. FAMILY HISTORY: Noncontributory. ALLERGIES: INCLUDE PENICILLIN. MEDICATIONS: Include aspirin, __, glimepiride, potassium, Crestor, spironolactone, and Demadex. REVIEW OF SYSTEMS: Not obtainable as the patient is somnolent, difficult to arouse and will not answer any questions at this time. PHYSICAL EXAMINATION: [facility] [address] [address] CONSULTATION Name: LIVIA ANTONIO Room #: 238-P [facility] IN ..#: [id number] Admission: 11/07/20 Attend Phys: Percy Mukherjee MD Discharge: Date of : 54 Report #: [id number] VITAL SIGNS: At this time include blood pressure 106/56, temperature 98.2, pulse 98, and respiratory rate of 22. GENERAL: This is a chronically ill-appearing male patient who appears to be mostly somnolent, in no obvious distress. HEENT: Head normocephalic. NECK: Supple. LUNGS: Clear. HEART: Irregular. ABDOMEN: Soft. EXTREMITIES: Right lower extremity demonstrates 3 small venous type ulcers to the pretibial region. They are actually rack cleaner and slightly improved since previous hospitalization about a week ago. He has very mild surrounding erythema. I do not think it quite rises to the level of cellulitis. NEUROLOGIC: The patient is somnolent and not following commands. LABORATORY STUDIES: At this time include sodium 135, potassium 4.6, chloride 96, BUN 68, creatinine 5.0, glucose 100, and albumin is 3.5. White blood cell count 10.5 with a hemoglobin of 7.3. CLINICAL IMPRESSION: 1. Venous type ulceration of the right lower extremity. 2. Chronic edema bilateral lower extremities consistent with venous insufficiency and/or volume overload related to congestive heart failure. 3. History of congestive heart failure with previous ejection fraction of 48%. 4. Coronary artery disease. 5. History of abdominal aortic aneurysm, status post stent graft. 6. History of severe tobacco abuse. 7. History of generalized debility. RECOMMENDATIONS: At this point in time, we will resume with gentamicin, Xeroform and bordered foam to the open ulcers of the right lower leg daily and p.r.n. AmLactin to the dry skin on both lower extremities, Tubigrip from toes to knees for edema control, elevation of the extremities. Recommend PRAFO boots while he is in bed at this time. Continue with other medical management of his underlying medical issues. I appreciate being asked to see him again in consultation. <ELECTRONICALLY SIGNED> By: Dez Don MD 11/10/20 1051 1554 58 Dez Don MD /nt
--- NOTE | 2020-11-10 13:53 | NUR ---
WOUND CARE F/U; REC'D A V/O FROM DR KATEY IRWIN TO APPLY A TUBIGRIP. I CHOOSE SIZE "G" APPLIED FROM THE BASE OF THE TOES TO JUST BELOW THE KNEE. THE PATIENT TOLERATED THE APPLICATION W/O COMPLAINT. STAFF WAS PRESENT.
[2020-11-11] VITALS (12 sets, daily range): BP systolic 100–137; BP diastolic 56–76
[2020-11-11 04:59] LABS: ALBUMIN 3.5 g/dL (3.4-5.0); CREATININE 6.1 mg/dL (0.7-1.3); PHOSPHORUS 6.8 mg/dL (2.5-4.9); POTASSIUM 4.7 mmol/L (3.5-5.1)
[2020-11-11 05:25] LABS: HEMOGLOBIN 7.2 gm/dL (14.0-18.0); MCV 101.7 fL (80.0-100.0)
[2020-11-11 05:33] LABS: HEMATOCRIT 21.4 % (42.0-52.0); MCHC 33.5 g/dL (28.0-37.0); RBC 2.1 mil/uL (4.50-6.00); RDW 17.9 % (10.5-14.5); WBC 6.4 thou/uL (4.0-11.0)
--- NOTE | 2020-11-11 14:30 | NUR ---
Phyllis- present, updated on pt status including his labs. she was able to coax pt to eat a portion of his lunch. she is providing support to her spouse and he is responsive.
[2020-11-12] VITALS (32 sets, daily range): BP systolic 99–139; BP diastolic 45–81
[2020-11-12 06:00] LABS: ALBUMIN 3.7 g/dL (3.4-5.0); CALCIUM 9.4 mg/dL (8.5-10.1); CREATININE 6.6 mg/dL (0.7-1.3); PHOSPHORUS 7.2 mg/dL (2.5-4.9); POTASSIUM 4.7 mmol/L (3.5-5.1)
[2020-11-12 09:11] LABS: % SATURATION 105 % (20-39); IRON 297 ug/dL (65-175); TIBC 283 ug/dL (250-450)
--- NOTE | 2020-11-12 09:56 | NUR ---
Assumed care at 0700, assessment and vitals signs completed per ICU protocol. Dr. Ordoñez, Dr. Zayas, and Dr. Singh rounded this am, plan of care discussed. RN went to obtain consent for Temporary Dialysis Catheter, pt was confused about the circumstances and necessity for catheter. RN called pt's spouse, Phyllis Hickey, consented for procedure.
[2020-11-12 09:58] LABS: APTT 26.4 Seconds (24.5-32.8); INR 1.61; PROTIME 17.2 Seconds (9.3-11.4)
--- NOTE | 2020-11-12 13:21 | NUR ---
discussed during los. pt going to get dialysis cath today. cm visited with his mckenzie via phone call, she had question if he would need some rehab when ready to leave hospital? education on acute rehabs and post acute rehab also. will cont following as needed for dc needs. "hope he feels better soon and memory improves"/dameon rincon active listen and support during phone call.
[2020-11-13] VITALS (42 sets, daily range): BP systolic 89–131; BP diastolic 47–68
[2020-11-13 02:06] LABS: HEP B SURFACE Ab(ANTI-HBS Non Reactive (()); HEPATITIS B SURFACE AG Negative (Negative)
[2020-11-13 05:06] LABS: PLATELET COUNT 56 thou/uL (150-400); RBC 1.94 mil/uL (4.50-6.00)
[2020-11-13 05:10] LABS: HEMOGLOBIN 6.7 gm/dL (14.0-18.0); MCH 34.3 pg (26.0-34.0); MCV 100.9 fL (80.0-100.0); RDW 18.2 % (10.5-14.5); WBC 8.1 thou/uL (4.0-11.0)
[2020-11-13 05:13] LABS: ALBUMIN 3.5 g/dL (3.4-5.0); POTASSIUM 4.9 mmol/L (3.5-5.1); TOTAL BILIRUBIN 7.6 mg/dL (0.2-1.0); TOTAL PROTEIN 6.1 g/dL (6.4-8.2)
[2020-11-13 05:30] LABS: HEMATOCRIT 19.5 % (42.0-52.0)
[2020-11-13 05:35] LABS: CREATININE 5.1 mg/dL (0.7-1.3)
--- NOTE | 2020-11-13 07:25 | NUR ---
ASSUMED CARE AT 1900. PT ALERT TO HIMSELF, DELAYED ANSWERING, APPEARED SOB/WINDED BUT WHEN ASKED DENIED FEELING SOA. REFUSED TO HAVE A SNACK OF ANY KIND, WOULD NOT TAKE LIQUIDS. PICKED AT STAT LOCK, THREW COVERS OFF, STILL AT RISK OF PULLING AT DIALYSIS CATH IF NOT RESTRAINED. AM LABS CRIT HCT, SPOKE W/BOLIVAR BRIDGES AT 0536, OBTAINED ORDER FOR TYPE/SCREEN AND ONE UNIT DURING DIALYSIS. NO OTHER CONCERNS, SHIFT REPORT AT 0700.
[2020-11-13 09:07] LABS: ABSOLUTE NEUTROPHILS 6.6 thou/uL (1.4-8.2); NUCLEATED RBCS 9 /100WBC; PLATELET ESTIMATE DECREASED
[2020-11-13 09:08] LABS: ANISOCYTOSIS 1+; LARGE PLATELETS FEW; MACROCYTES 1+
[2020-11-13 09:09] LABS: OVALOCYTES OCCASIONAL; POIKILOCYTOSIS SLIGHT; POLYCHROMASIA 1+
--- NOTE | 2020-11-13 10:28 | NUR ---
Nutrition: PO poor x several days, AMS. Now meeting criteria for severe malnutrition. If po does not improve within 24 hrs consider dobhoff placement and start Nepro to reach 40 mL/hr.
--- NOTE | 2020-11-13 14:01 | NUR ---
chart review, discussed during los, possible transfer out of icu. sabine having dialysis again today and blood transfusion. cm visited with mckenzie via phone call, education on rehab, post acute and dialysis if needed after dc. " rehab here is what would like then home, if cant do rehab here then [facility], do not want [facility] his dad was there and it is not good. we live closed to here so [facility]y [facility] for when he comes phone"/mckenzie. will cont following as needed for dc needs. no anticipated dc over the weekend.
[2020-11-13 22:06] LABS: HEMOGLOBIN 6.5 g/dL (13.0-17.7)
--- NOTE | 2020-11-13 22:41 | NUR ---
ASSUMED CARE AT 1900. PT TIRED/DROWSY, DELAYED RESPONSES WHEN ANSWERING QUESTIONS, UNABLE TO GIVE HIS BIRTHDAY. VS STABLE, AFEBRILE, NO OUTPUT FROM STEWART. RECEIVED ORDERS TO TRANSFER OUT OF ICU; CALLED REPORT TO BERTHA ON 3W AT 2208, PT WILL TRANSPORT BY BED. NO OTHER CONCERNS, PROGRESSING TOWARDS GOALS.
[2020-11-14 05:40] VITALS: BP 112/57
[2020-11-14 06:52] LABS: HEMOGLOBIN 7.5 gm/dL (14.0-18.0); WBC 9.7 thou/uL (4.0-11.0)
[2020-11-14 06:53] LABS: MCH 33.4 pg (26.0-34.0); MCHC 34.1 g/dL (28.0-37.0); MCV 98.2 fL (80.0-100.0); RBC 2.24 mil/uL (4.50-6.00); RDW 20.5 % (10.5-14.5)
[2020-11-14 07:14] LABS: ALBUMIN 3.5 g/dL (3.4-5.0); CALCIUM 9.1 mg/dL (8.5-10.1); CREATININE 4.5 mg/dL (0.7-1.3); POTASSIUM 5.5 mmol/L (3.5-5.1); TOTAL BILIRUBIN 9.8 mg/dL (0.2-1.0); TOTAL PROTEIN 5.8 g/dL (6.4-8.2)
--- NOTE | 2020-11-14 07:38 | NUR ---
REPORT FROM PAUL NOVAK FROM ICU PT ADMITTED WITH MULTI SYSTEM ORGAN FAILURE. TRANSFERRED TO [facility] [place] VIA BED VITAL SIGNS STABLE , RIGHT ITERNAL JUGULAR DIALYSIS ACCESS PORT INTACT. PT IN SOFT WRIST RESTRAINTS TO PREVENT REMOVAL OF DIALYSIS ACCESS, STEWART CATHETER AND 2 IV SL'S. REPOSITIONED NEEDED ON 3 LITERS OF O2. STEWART IN PLACE NO URINE NOTED ON MY SHIFT APPROXIMATELY 25CC'S OF BROWN URINE NOTED IN STEWART BAG. TELE INTACT CONTINUE TO MONITOR.
[2020-11-14 07:44] VITALS: BP 128/56
[2020-11-14 08:07] LABS: ABSOLUTE NEUTROPHILS 5.8 thou/uL (1.4-8.2); CORRECTED WBC 7.9 thou/uL (4.0-11.0); NUCLEATED RBCS 23 /100WBC; PLATELET COUNT 59 thou/uL (150-400)
[2020-11-14 08:08] LABS: ANISOCYTOSIS 2+; HYPOCHROMASIA 2+; PLATELET ESTIMATE DECREASED; POLYCHROMASIA SLIGHT
[2020-11-14 13:35] LABS: BE(vivo) 1.5 mmol/L (-2 to +3); HCO3 25.1 mmol/L (22.0-26.0); PCO2 34.8 mmHg (35.0-45.0); PO2 84.9 mmHg (80.0-100.0); pH 7.476 (7.360-7.450)
[2020-11-14 15:31] VITALS: BP 101/58
--- NOTE | 2020-11-14 18:10 | NUR ---
PATIENT REMAINS LETHERGIC. OCCASIONALLY WAKES UP. DID EAT AND DRINK SOME FOR LUNCH. HERE TO VISIT. UPDATED ON PLAN OF CARE.
[2020-11-14 20:00] VITALS: BP 134/61
[2020-11-15] VITALS (73 sets, daily range): BP systolic 48–178; BP diastolic 11–120
[2020-11-15 04:00] LABS: CALCIUM 9.2 mg/dL (8.5-10.1); CREATININE 3.9 mg/dL (0.7-1.3); POTASSIUM 5.1 mmol/L (3.5-5.1)
--- NOTE | 2020-11-15 04:29 | NUR ---
PROGRESS PT SEDATED AND SLEEPING MOST OF SHIFT. TELE INTACT READING SR WITH A 1 DEGREE AV BLOCK. RESTRAINTS IN PLACE REMOVED AND SKIN CHECKED AND PT REPOSITIONED Q2HRS. SALINE LOCKS TO BILATERAL FOREARMS FLUSH WITHOUT DIFFICULTY. STEWART IN PLACE WITH NO URINE APPROXIMATELY 25 DARK BROWN CC'S FROM YESTERDAY IN BAG EMPTIED AND CATHETER GENTLY FLUSHED WITH NS WITH NO BLOCKAGE IN CATHETER NOTED. EDEMA HAS SUBSIDED TO ARMS AND LEGS 2+ EDEMA NOW. PT HAD A SMALL DARK UNFORMED BOWEL MOVEMENT PERIAREA NOT RED YESTERDAY CLEANSEDAND ZYGUARD AND BARRIER CREAM APPLIED. VSS CONTINUE TO MONITOR.
[2020-11-15 04:38] LABS: HEMATOCRIT 22.4 % (42.0-52.0); HEMOGLOBIN 7.3 gm/dL (14.0-18.0); MCHC 32.7 g/dL (28.0-37.0); WBC 12.3 thou/uL (4.0-11.0)
[2020-11-15 04:40] LABS: MCH 32.9 pg (26.0-34.0); MCV 100.7 fL (80.0-100.0); RBC 2.23 mil/uL (4.50-6.00); RDW 20.8 % (10.5-14.5)
--- NOTE | 2020-11-15 07:18 | NUR ---
pt spiked temp of 102.3, respirations 38 and labored, bp 101/59 heart rate 135, o2 sat 94 on 3 liters pt not responsive pupils pinpoint . notified ekg obtained requested i call spoke to earl advised to call hospitalist, spoke to dr. davalos stat cxr and abg's ordered order to transfer to icu. spouse Phyllis Hickey notified awaiting room assignment.
[2020-11-15 07:21] LABS: HCO3 12.2 mmol/L (22.0-26.0); PCO2 25.8 mmHg (35.0-45.0); pH 7.292 (7.360-7.450); sO2 99.3 % (92.0-98.0)
--- NOTE | 2020-11-15 07:34 | NUR ---
pt transferred to icu 243 via bed with sanjay campos, and RT notified not consulted on this case.
--- NOTE | 2020-11-15 14:54 | NUR ---
VAT CONSULTED FOR CVL PLACEMENT. ATTEMPTED LEFT JUGULAR APPROACH WITHOUT SUCCESS. ABLE TO CANNULATE VESSEL, BUT MET RESISTANCE WHEN THREADING WIRE. UNABLE TO USE RIGHT SIDE, PT HAS TEMPORARY HD CATHETER IN PLACE. SCARLET PANIAGUA AND I DECIDED THAT I WOULD ASSESS FOR PIV PLACEMENT, FOR TODAY, PT NOT CURRENTLY ON PRESSORS. SHE NOTIFIED DR BANERJEE. LEFT ANTERIOR FOREARM PIV STARTED, WITH US GUIDANCE.
--- NOTE | 2020-11-15 18:20 | NUR ---
TRANSFERRED FROM AT 0845 THIS AM ON BIPAP, FIO2 WEANED DOWN TO .30. LETHARGIC AND SPORACTICALLY RESPONSE AND FOLLOWING COMMANDS. SPOKE WITH ON PHONE THEN AT BEDSIDE, UPDATED AND QUESTIONS ANSWERED. CT HEAD NEGATIVE. LACTIC ACIDS: 11.O, 12.6, PROCALCITONIN 20.71. MD AWARE. SOURCE OF INFECTION UNKNOWN AT THIS TIME. STARTED ON VANC, MEROPENEM AND MICAMINE.
--- NOTE | 2020-11-15 20:42 | NUR ---
ASSUMED CARE AT 1900. CHECKED BS AT 1930, RESULT 59. PUSHED AMP D50. BLOOD PRESSURE DROPPING, PUT PT IN TRENDELBERG. SPOKE TO DR. BANERJEE, RECEIVED ORDERS FOR LEVOPHED, NS BOLUS, D5 FLUIDS. PT CHEMO'D TO 50'S, COOL, EYES ROLLED BACK IN HEAD. UNABLE TO FEEL OR AUSCULATE PULSE. CODE BLUE CALLED, SEE CODE DOCUMENTATION. DR. BANERJEE NOTIFIED, WILL BE IN TO PLACE LINES. WILL CONINTUE TO MONITOR.
[2020-11-15 20:46] LABS: BE(vivo) -19.1 mmol/L (-2 to +3); HCO3 11.1 mmol/L (22.0-26.0); PCO2 49.1 mmHg (35.0-45.0); PO2 135.7 mmHg (80.0-100.0); sO2 96.9 % (92.0-98.0)
[2020-11-15 20:48] LABS: pH 6.973 (7.360-7.450)
[2020-11-15 21:39] LABS: HEMATOCRIT 21.3 % (42.0-52.0); MCH 33.3 pg (26.0-34.0); MCHC 29.7 g/dL (28.0-37.0); PLATELET COUNT 64 thou/uL (150-400); RDW 22.5 % (10.5-14.5); WBC 19.5 thou/uL (4.0-11.0)
[2020-11-15 21:41] LABS: MCV 112.3 fL (80.0-100.0)
[2020-11-15 21:42] LABS: HEMOGLOBIN 6.3 gm/dL (14.0-18.0)
[2020-11-15 21:51] LABS: APTT 51.9 Seconds (24.5-32.8); PROTIME 27.2 Seconds (9.3-11.4)
[2020-11-15 21:59] LABS: ALBUMIN 2.7 g/dL (3.4-5.0); CALCIUM 8.2 mg/dL (8.5-10.1); MAGNESIUM 2.7 mg/dL (1.8-2.4); PHOSPHORUS 11.1 mg/dL (2.5-4.9); TOTAL PROTEIN 4.9 g/dL (6.4-8.2)
[2020-11-15 22:00] LABS: TOTAL BILIRUBIN 11.7 mg/dL (0.2-1.0)
[2020-11-15 22:02] LABS: INR 2.61
[2020-11-15 22:03] LABS: POTASSIUM 6.7 mmol/L (3.5-5.1)
[2020-11-15 23:27] LABS: ABSOLUTE NEUTROPHILS 12.6 thou/uL (1.4-8.2); ATYPICAL LYMPHS 2 %; CORRECTED WBC 16.1 thou/uL (4.0-11.0); MACROCYTES 3+; METAMYELOCYTES 1 %; NUCLEATED RBCS 21 /100WBC
[2020-11-15 23:28] LABS: ANISOCYTOSIS 3+; PLATELET ESTIMATE DECREASED; POLYCHROMASIA 2+; TOXIC GRANULATION 2+
[2020-11-15 23:53] LABS: BE(vivo) -12.4 mmol/L (-2 to +3); HCO3 16.1 mmol/L (22.0-26.0); PCO2 50.8 mmHg (35.0-45.0); PO2 99.5 mmHg (80.0-100.0); pH 7.119 (7.360-7.450); sO2 95.2 % (92.0-98.0)
[2020-11-16 00:05] VITALS: BP 108/34
[2020-11-16 00:15] VITALS: BP 121/41
[2020-11-16 01:19] VITALS: BP 187/137
[2020-11-16 01:41] LABS: BE(vivo) -10.3 mmol/L (-2 to +3); HCO3 18.4 mmol/L (22.0-26.0); PCO2 54.3 mmHg (35.0-45.0); sO2 93.2 % (92.0-98.0)
[2020-11-16 01:42] LABS: pH 7.149 (7.360-7.450)
[2020-11-16 04:03] LABS: CALCIUM 7.7 mg/dL (8.5-10.1)
[2020-11-16 04:04] LABS: CREATININE 3.3 mg/dL (0.7-1.3); POTASSIUM 4.7 mmol/L (3.5-5.1)
[2020-11-16 04:09] LABS: HEMATOCRIT 27.7 % (42.0-52.0); MCH 31.7 pg (26.0-34.0); MCHC 31.9 g/dL (28.0-37.0); RBC 2.79 mil/uL (4.50-6.00); RDW 20.5 % (10.5-14.5)
[2020-11-16 04:10] LABS: HEMOGLOBIN 8.8 gm/dL (14.0-18.0); MCV 99.2 fL (80.0-100.0)
[2020-11-16 04:12] LABS: WBC 37.8 thou/uL (4.0-11.0)
[2020-11-16 04:35] LABS: BE(vivo) -6.6 mmol/L (-2 to +3); HCO3 19.5 mmol/L (22.0-26.0); PCO2 41.5 mmHg (35.0-45.0); PO2 97.9 mmHg (80.0-100.0); sO2 96.7 % (92.0-98.0)
--- NOTE | 2020-11-16 07:21 | NUR ---
PATIENT TRANSFERRED TO 3W OVER THE WEEKEND, TRANSFER BACK TO ICU, CODE BLUE, CRITICAL LABS/STATUS. WILL PLACE ON HOLD D/T CHANGE IN STATUS AND AWAIT NEW ORDERS IF APPROPRIATE TO RESTART OT INTERVENTIONS.
--- NOTE | 2020-11-16 07:30 | NUR ---
ASSUSSMED CARE OF THIS PT FROM THE NIGHT NURSE. ICE PACKS APPLIED TO GROIN AND UNDER ARMS. DOPAMINE AND LEVOPHED TAITRATED FOR BP MANAGEMENT.
--- NOTE | 2020-11-16 07:49 | NUR ---
Pt TRANSFERRED TO ICU. WILL PLACE ON HOLD AND AWAIT NEW ORDERS TO RESUME WHEN APPROPRIATE
[2020-11-16 08:07] LABS: HCO3 19.8 mmol/L (22.0-26.0); PCO2 45.6 mmHg (35.0-45.0); PO2 162.1 mmHg (80.0-100.0); sO2 98.8 % (92.0-98.0)
[2020-11-16 08:08] LABS: pH 7.256 (7.360-7.450)
[2020-11-16 10:31] VITALS: BP 86/49; BP 90/50; BP 92/51
--- NOTE | 2020-11-16 12:00 | NUR ---
UNIT OF FFP INFUSING PER ORDER. LEVOPHED TAPPERED FOR HYPOTENSION. WILL CONTINUE TO MONITOR.
[2020-11-16 12:24] LABS: ABSOLUTE RETIC COUNT 0.1186 10^6/uL; OBSERVED RETIC COUNT 4.49 % (0.6-2.6)
[2020-11-16 12:52] LABS: DIRECT BILIRUBIN 10.5 mg/dL (<0.1-0.2)
[2020-11-16 12:55] LABS: TOTAL BILIRUBIN 16.4 mg/dL (0.2-1.0)
--- NOTE | 2020-11-16 13:05 | NUR ---
THE PATIENT WAS TRANSFERRED TO ICU AND IS CURRENTLY ON A VENTILATOR. ST WILL AWAIT NEW ORDERS
[2020-11-16 13:11] LABS: INR 2.96; PROTIME 30.6 Seconds (9.3-11.4)
--- NOTE | 2020-11-16 13:20 | NUR ---
AND DAUGHTER AT BEDSIDE. SACRAMENT OF THE SICK AND DYING PREFORMED BY THE FAMILY FILLETER. DR WAYNE INFORMED THAT THE FAMILY WAS HERE AND SPOKE WITH THEM CONCERNING PATIENT CONDITION AND THEIR WISHES. STATES THAT HE WOULD NOT WANT TO LIVE IF HE HAD NO QUALITY OF LIFE. PATIENT MADE A NO CODE, BAND APPLIED.
[2020-11-16 13:30] VITALS: BP 82/46; BP 90/50; BP 92/51
--- NOTE | 2020-11-16 13:45 | NUR ---
DR BANERJEE UPDATED TO THE FAMILY'S WISHES.
--- NOTE | 2020-11-16 14:45 | NUR ---
[facility] NOTIFIED OF IMPENDING .
--- NOTE | 2020-11-16 15:06 | NUR ---
Care team indicated that patient coded last evening. Pt was resuscitated now intubated on 100% FiO2. On vasopressors. Pt's family planning on withdrawing life support soon per care team. Cm following.
--- NOTE | 2020-11-16 16:00 | NUR ---
FAMILY MEMBERS UP TO VISIT AND SUPPORT THE AND DAUGHTER. REASSURANCE GIVEN TO THE FAMILY.
--- NOTE | 2020-11-16 16:16 | NUR ---
DR ULRICH AND DR BANEJREE NOTIFIED THAT THE FAMILY WAS READY TO HAVE PATIENT EXTUBATED FOR NATURAL . ORDERS NOTED.
--- NOTE | 2020-11-16 16:35 | NUR ---
MONITOR SHOWING SB WITH BBB AND BP NOW IN THE 50'S SYSTOLIC VIA [place]. IS AT THE BEDSIDE. DR WAYNE NOTIFIED OF PATIENT'S CHANGE IN STATUS. ORDERS NOTED. PATIENT EXTUBATED BY RT WITH FAMILY WAITING OUTSIDE THE UNIT.
--- NOTE | 2020-11-16 16:45 | NUR ---
AND DAUGHTER AT BEDSIDE WHEN PATIENT WENT ASYSTOLE. UNABLE TO PALPATE PULSE, AUSCULTATE HEART TONES, NO RESP EFFORT NOTED SINCE EXTUBATION, PUPILS 6MM AND FIXED. PATIENT PRONOUNCED BY 2 NURSES.
[2020-11-16 22:06] LABS: IgM 34 mg/dL (20-172)
[2020-11-17 00:06] LABS: HEMOGLOBIN 8.4 g/dL (13.0-17.7)
--- NOTE | 2020-11-17 07:01 | EKG ---
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 Atrial flutter 2:1 block Marked right bundle branch block Prolonged QT, probably secondary to wide QRS Compared to ECG 11/08/2020 11:41:08 Prolonged QT interval now present T-wave abnormality no longer present Possible ischemia no longer present Electronically Signed On 11-17-2020 7:00:54 CDT by Ravi Quinonez [email or web address] <ELECTRONICALLY SIGNED> By: Ravi Quinonez MD, [facility] 11/17/20699 5 5 Ravi Quinonez MD, [facility] /EPI
[2020-11-17 11:07] LABS: GLOBULIN TOTAL 1.8 g/dL (2.2-3.9); M-SPIKE 0.1 g/dL (Not Observed)
[2020-11-18 12:07] LABS: IgA 28 mg/dL (61-437); IgG 246 mg/dL (603-1613)
== END 2020-11-16 16:42 | DRG 871 ==
LOC: ER 16:27 → ICU 18:38 → EROBS 18:38 → 3W 21:14 → ICU 11-08 16:18 → 3W 11-14 00:13 → ICU 11-15 07:31
PROVIDERS: Emergency Medicine; Hospitalist; Internal Medicine Hematology & Oncology; Nurse Practitioner; Pediatrics; Radiology Vascular & Interventional Radiology; Specialist; ADMIT Internal Medicine; ATTEND Internal Medicine
PROC: 02HV33Z Insertion of Infusion Device into Superior Vena Cava, Percutaneous Approach (ICD-10-PCS; 2020-11-08)
PROC: 02HV33Z Insertion of Infusion Device into Superior Vena Cava, Percutaneous Approach (ICD-10-PCS; principal; 2020-11-12)
PROC: B5181ZA Fluoroscopy of Superior Vena Cava using Low Osmolar Contrast, Guidance (ICD-10-PCS; principal; 2020-11-12)
PROC: 5A1D70Z Performance of Urinary Filtration, Intermittent, Less than 6 Hours Per Day (ICD-10-PCS; principal; 2020-11-12)
PROC: B548ZZA Ultrasonography of Superior Vena Cava, Guidance (ICD-10-PCS; principal; 2020-11-12)
PROC: 30233N1 Transfusion of Nonautologous Red Blood Cells into Peripheral Vein, Percutaneous Approach (ICD-10-PCS; 2020-11-13)
PROC: 0BH17EZ Insertion of Endotracheal Airway into Trachea, Via Natural or Artificial Opening (ICD-10-PCS; 2020-11-15)
PROC: 5A09357 Assistance with Respiratory Ventilation, Less than 24 Consecutive Hours, Continuous Positive Airway Pressure (ICD-10-PCS; 2020-11-15)
PROC: 5A1935Z Respiratory Ventilation, Less than 24 Consecutive Hours (ICD-10-PCS; 2020-11-15)
PROC: 03HY32Z Insertion of Monitoring Device into Upper Artery, Percutaneous Approach (ICD-10-PCS; 2020-11-16)
PROC: 4A133J1 Monitoring of Arterial Pulse, Peripheral, Percutaneous Approach (ICD-10-PCS; 2020-11-16)
PROC: 5A1D70Z Performance of Urinary Filtration, Intermittent, Less than 6 Hours Per Day (ICD-10-PCS; 2020-11-16)
PROC: 4A133B1 Monitoring of Arterial Pressure, Peripheral, Percutaneous Approach (ICD-10-PCS; 2020-11-16)
PROC: 30233M1 Transfusion of Nonautologous Plasma Cryoprecipitate into Peripheral Vein, Percutaneous Approach (ICD-10-PCS; 2020-11-16)
DX: A41.52 Sepsis due to Pseudomonas (principal); J96.01 Acute respiratory failure with hypoxia; G92 Toxic encephalopathy; I50.33 Acute on chronic diastolic (congestive) heart failure; N17.0 Acute kidney failure with tubular necrosis; R65.21 Severe sepsis with septic shock; J18.9 Pneumonia, unspecified organism; E43 Unspecified severe protein-calorie malnutrition; I13.0 Hypertensive heart and chronic kidney disease with heart failure and stage 1 through stage 4 chronic kidney disease, or unspecified chronic kidney disease; I42.9 Cardiomyopathy, unspecified; L97.819 Non-pressure chronic ulcer of other part of right lower leg with unspecified severity; N39.0 Urinary tract infection, site not specified; E11.9 Type 2 diabetes mellitus without complications; K21.9 Gastro-esophageal reflux disease without esophagitis; E78.5 Hyperlipidemia, unspecified; E11.22 Type 2 diabetes mellitus with diabetic chronic kidney disease; N18.9 Chronic kidney disease, unspecified; D64.9 Anemia, unspecified; D69.6 Thrombocytopenia, unspecified; I35.0 Nonrheumatic aortic (valve) stenosis; E11.51 Type 2 diabetes mellitus with diabetic peripheral angiopathy without gangrene; I87.2 Venous insufficiency (chronic) (peripheral); I25.10 Atherosclerotic heart disease of native coronary artery without angina pectoris; I71.4 Abdominal aortic aneurysm, without rupture; I95.9 Hypotension, unspecified; E87.6 Hypokalemia; E83.42 Hypomagnesemia; E66.01 Morbid (severe) obesity due to excess calories; J44.9 Chronic obstructive pulmonary disease, unspecified; Z66 Do not resuscitate; Z20.822 Contact with and (suspected) exposure to COVID-19; Z68.35 Body mass index [BMI] 35.0-35.9, adult; Z95.1 Presence of aortocoronary bypass graft; Z86.73 Personal history of transient ischemic attack (TIA), and cerebral infarction without residual deficits; Z79.899 Other long term (current) drug therapy; Z79.84 Long term (current) use of oral hypoglycemic drugs; Z79.82 Long term (current) use of aspirin; Z88.0 Allergy status to penicillin; Z87.891 Personal history of nicotine dependence
CPT/HCPCS: 10078; 10203; 10879; 32100; 65040